=== PATIENT | female | born 1945 | race Two or more races ===

== ENCOUNTER 2019-05-30 13:05 | Inpatient (IN) | payer OTHER ==
[~2019-05-30] VITALS: Ht 160 cm; Wt 79.6 kg
[~2019-05-30 13:05] MED LIST: BENA20 PO; PRAV20 PO; RANI150 PO
[2019-05-30 13:35] LABS: Calcium, Ionized (POC) 1.25 mmol/L (1.10-1.46); Chloride (POC) 99 mmol/L (98-108); Creatinine (POC) 0.9 mg/dL (0.6-1.0); Glucose (ISTAT POC) 295 mg/dL (70-99); Hemoglobin (POC) 12.6 g/dL (12.0-16.0); Potassium (POC) 4.3 mmol/L (3.5-5.5); Sodium (POC) 135 mmol/L (135-148); Total CO2 (POC) 27 mmol/L (21-32)
[2019-05-30 13:40] LABS: BASOPHILS ABSOLUTE AUTO 0.04 K/mm3 (0.00-0.23); BASOPHILS PERCENT AUTO 1 % (0-2); EOSINOPHILS ABSOLUTE AUTO 0.14 K/mm3 (0.00-0.68); EOSINOPHILS PERCENT AUTO 2 % (0-6); Hematocrit 38.6 % (33.0-51.0); Hemoglobin 12.4 g/dL (11.5-16.0); IMMATURE GRAN ABSOLUTE AUTO 0.02 K/mm3 (0.00-0.10); IMMATURE GRAN PERCENT AUTO 0 % (0-1); LYMPHOCYTES ABSOLUTE AUTO 1.02 K/mm3 (0.84-5.20); LYMPHOCYTES PERCENT AUTO 13 % (21-46); MONOCYTES ABSOLUTE AUTO 0.52 K/mm3 (0.16-1.47); MONOCYTES PERCENT AUTO 7 % (4-13); Mean Corpuscular HGB Conc 32.1 g/dL (31.5-36.5); Mean Corpuscular Volume 97 fL (80-100); Mean Platelet Volume 12.5 fL (9.1-12.4); NEUTROPHILS ABSOLUTE AUTO 6.12 K/mm3 (1.96-9.15); NEUTROPHILS PERCENT AUTO 78 % (41-73); Platelet Count 179 K/mm3 (150-400); RDW Coefficient Variation 13.2 % (11.7-14.2); White Blood Cell Count 7.86 K/mm3 (4.00-11.30)
[2019-05-30] MEDS ORDERED: METF500 PO (13:43)
[2019-05-30] MEDS ORDERED: B-121000 MC2 PO (14:11)
[2019-05-30 14:13] LABS: Alanine Aminotransfer (ALT/SGP 24 U/L (12-78); Albumin, Blood 3.4 g/dL (3.4-5.0); Albumin/Globulin Ratio 0.9 (0.8-1.8); Alk Phos 58 U/L (50-136); Anion Gap 8 mmol/L (6-16); Aspartate Aminotrans (AST/SGOT 20 U/L (12-37); Bilirubin, Total 0.3 mg/dL (0.1-1.0); Blood Urea Nitrogen 15 mg/dL (8-24); Bun/Creatinine Ratio 20.1 (12.0-20.0); CO2, Blood 26 mmol/L (21-32); Calcium, Blood 9.1 mg/dL (8.5-10.1); Chloride, Blood 103 mmol/L (98-108); Creatinine, Blood 0.75 mg/dL (0.40-1.00); Globulin, Blood 3.7 g/dL (2.2-4.0); Glomerular Filtration Rate >60 (60-); Glucose, Blood 285 mg/dL (70-99); Potassium, Blood 4.3 mmol/L (3.5-5.5); Sodium, Blood 137 mmol/L (136-145); Total Protein, Blood 7.1 g/dL (6.4-8.2); Troponin I 0.027 ng/mL (0.000-0.040)
[2019-05-30 14:49] LABS: International Normalized Ratio 1.03; Prothrombin Time Results 10.9 Sec (9.7-11.5)
[2019-05-31 03:48] LABS: BASOPHILS ABSOLUTE AUTO 0.04 K/mm3 (0.00-0.23); BASOPHILS PERCENT AUTO 1 % (0-2); EOSINOPHILS PERCENT AUTO 3 % (0-6); Hematocrit 36.9 % (33.0-51.0); Hemoglobin 11.8 g/dL (11.5-16.0); IMMATURE GRAN ABSOLUTE AUTO 0.02 K/mm3 (0.00-0.10); IMMATURE GRAN PERCENT AUTO 0 % (0-1); LYMPHOCYTES ABSOLUTE AUTO 1.19 K/mm3 (0.84-5.20); LYMPHOCYTES PERCENT AUTO 17 % (21-46); MONOCYTES ABSOLUTE AUTO 0.57 K/mm3 (0.16-1.47); MONOCYTES PERCENT AUTO 8 % (4-13); Mean Corpuscular Volume 97 fL (80-100); Mean Platelet Volume 12.7 fL (9.1-12.4); NEUTROPHILS ABSOLUTE AUTO 5.15 K/mm3 (1.96-9.15); NEUTROPHILS PERCENT AUTO 72 % (41-73); Platelet Count 162 K/mm3 (150-400); RDW Coefficient Variation 13.2 % (11.7-14.2); RDW Standard Deviation 47.1 fL (35.1-46.3); Red Blood Cell Count 3.81 M/mm3 (3.80-5.20); White Blood Cell Count 7.17 K/mm3 (4.00-11.30)
[2019-05-31 04:08] LABS: Anion Gap 6 mmol/L (6-16); Blood Urea Nitrogen 13 mg/dL (8-24); Bun/Creatinine Ratio 22.7 (12.0-20.0); CO2, Blood 23 mmol/L (21-32); Calcium, Blood 8.6 mg/dL (8.5-10.1); Chloride, Blood 110 mmol/L (98-108); Creatinine, Blood 0.57 mg/dL (0.40-1.00); Glomerular Filtration Rate >60 (60-); Glucose, Blood 125 mg/dL (70-99); Potassium, Blood 4.5 mmol/L (3.5-5.5); Sodium, Blood 139 mmol/L (136-145)
[2019-06-01] MEDS ORDERED: Amiodarone HCl200 MG PO (14:07)
== END 2019-06-01 16:45 | disposition home or self-care (01) | DRG 287 ==
LOC: ER 13:05 → PCU 16:32
PROVIDERS: Emergency Medicine; Hospitalist; Internal Medicine Cardiovascular Disease; ADMIT Internal Medicine
PROC: B2111ZZ Fluoroscopy of Multiple Coronary Arteries using Low Osmolar Contrast (ICD-10-PCS; principal; 2019-05-30)
PROC: 4A023N7 Measurement of Cardiac Sampling and Pressure, Left Heart, Percutaneous Approach (ICD-10-PCS; 2019-05-30)
DX: I47.2 Ventricular tachycardia (principal); Q21.1 Atrial septal defect; I28.0 Arteriovenous fistula of pulmonary vessels; E87.5 Hyperkalemia; E11.9 Type 2 diabetes mellitus without complications; I45.10 Unspecified right bundle-branch block; I10 Essential (primary) hypertension; R00.1 Bradycardia, unspecified
CPT/HCPCS: 36415; 71045; 80047; 80048; 80053; 82947; 83036; 83735; 84484; 85014; 85025; 85610; 86850; 86900; 86901; 93005; 93010; 93306; 93458; 96365; 96366; 96375; 99152; 99153; 99285-25; A9270; C1769; C1894; J0282; J0610; J0690; J1644; J2250; J3010; J3475; J7030; J7060; Q9967

== ENCOUNTER 2021-06-27 20:00 | Inpatient (IN) | payer SELFPAY ==
[~2021-06-27] VITALS: Ht 160 cm; Wt 76.1 kg
[~2021-06-27 20:00] MED LIST changes: +Amiodarone HCl200 MG PO; +B-121000 MC2 PO; +METF500 PO
[2021-06-27 20:22] LABS: BASOPHILS ABSOLUTE AUTO 0.03 K/mm3 (0.00-0.23); BASOPHILS PERCENT AUTO 0 % (0-2); EOSINOPHILS ABSOLUTE AUTO 0.02 K/mm3 (0.00-0.68); EOSINOPHILS PERCENT AUTO 0 % (0-6); Hematocrit 38.8 % (33.0-51.0); Hemoglobin 13.1 g/dL (11.5-16.0); IMMATURE GRAN ABSOLUTE AUTO 0.03 K/mm3 (0.00-0.10); IMMATURE GRAN PERCENT AUTO 0 % (0-1); LYMPHOCYTES ABSOLUTE AUTO 1.47 K/mm3 (0.84-5.20); LYMPHOCYTES PERCENT AUTO 15 % (21-46); MONOCYTES ABSOLUTE AUTO 0.55 K/mm3 (0.16-1.47); MONOCYTES PERCENT AUTO 6 % (4-13); Mean Corpuscular HGB Conc 33.8 g/dL (31.5-36.5); Mean Corpuscular Volume 92 fL (80-100); NEUTROPHILS ABSOLUTE AUTO 7.73 K/mm3 (1.96-9.15); NEUTROPHILS PERCENT AUTO 79 % (41-73); Platelet Count 183 K/mm3 (150-400); RDW Coefficient Variation 13.1 % (11.7-14.2); RDW Standard Deviation 43.8 fL (35.1-46.3); Red Blood Cell Count 4.23 M/mm3 (3.80-5.20); White Blood Cell Count 9.83 K/mm3 (4.00-11.30)
[2021-06-27 20:25] LABS: Calcium, Ionized (POC) 1.16 mmol/L (1.10-1.46); Chloride (POC) 99 mmol/L (98-108); Creatinine (POC) 1.5 mg/dL (0.6-1.0); Glucose (ISTAT POC) 175 mg/dL (70-99); Hemoglobin (POC) 14.6 g/dL (12.0-16.0); Potassium (POC) 4.5 mmol/L (3.5-5.5); Sodium (POC) 134 mmol/L (135-148); Total CO2 (POC) 24 mmol/L (21-32)
[2021-06-27 21:14] LABS: Albumin, Blood 3.6 g/dL (3.4-5.0); Bilirubin, Total 0.4 mg/dL (0.1-1.0); Bun/Creatinine Ratio 13.9 (12.0-20.0); Calcium, Blood 9.1 mg/dL (8.5-10.1); Creatinine, Blood 1.44 mg/dL (0.40-1.00); Globulin, Blood 3.7 g/dL (2.2-4.0); Magnesium, Blood 2.2 mg/dL (1.6-2.4); Potassium, Blood 4.1 mmol/L (3.5-5.5); Thyroid Stimulating Hormone 2.9 uIU/mL (0.360-4.800); Total Protein, Blood 7.3 g/dL (6.4-8.2)
[2021-06-27 21:18] LABS: Troponin I 0.577 ng/mL (0.000-0.040)
[2021-06-27 22:01] LABS: International Normalized Ratio 1.05
[2021-06-27] MEDS ORDERED: HYDCHL25 PO (22:05)
[2021-06-27] MEDS ORDERED: DILT60 PO (22:06)
[2021-06-27 23:16] LABS: Influenza A, PCR NEGATIVE (NEGATIVE); Influenza B, PCR NEGATIVE (NEGATIVE); Resp Syncytial Virus, PCR NEGATIVE (NEGATIVE); SARS-Cov-2 (COVID-19) PCR, MMC NEGATIVE (NEGATIVE)
[2021-06-28 05:50] LABS: BASOPHILS ABSOLUTE AUTO 0.04 K/mm3 (0.00-0.23); BASOPHILS PERCENT AUTO 1 % (0-2); EOSINOPHILS ABSOLUTE AUTO 0.02 K/mm3 (0.00-0.68); EOSINOPHILS PERCENT AUTO 0 % (0-6); Hematocrit 37.9 % (33.0-51.0); Hemoglobin 12.6 g/dL (11.5-16.0); IMMATURE GRAN ABSOLUTE AUTO 0.02 K/mm3 (0.00-0.10); IMMATURE GRAN PERCENT AUTO 0 % (0-1); LYMPHOCYTES ABSOLUTE AUTO 1.81 K/mm3 (0.84-5.20); LYMPHOCYTES PERCENT AUTO 21 % (21-46); MONOCYTES ABSOLUTE AUTO 0.76 K/mm3 (0.16-1.47); MONOCYTES PERCENT AUTO 9 % (4-13); Mean Corpuscular HGB 30.6 pg (26.0-34.0); Mean Corpuscular HGB Conc 33.2 g/dL (31.5-36.5); Mean Corpuscular Volume 92 fL (80-100); Mean Platelet Volume 13.6 fL (9.1-12.4); NEUTROPHILS PERCENT AUTO 69 % (41-73); Platelet Count 154 K/mm3 (150-400); RDW Standard Deviation 43.9 fL (35.1-46.3); Red Blood Cell Count 4.12 M/mm3 (3.80-5.20); White Blood Cell Count 8.65 K/mm3 (4.00-11.30)
[2021-06-28 06:21] LABS: Anion Gap 10 mmol/L (6-16); Blood Urea Nitrogen 24 mg/dL (8-24); Bun/Creatinine Ratio 18.5 (12.0-20.0); CHOL/HDL RATIO 2.6; CO2, Blood 27 mmol/L (21-32); Calcium, Blood 8.8 mg/dL (8.5-10.1); Chloride, Blood 100 mmol/L (98-108); Cholesterol 169 mg/dL (50-200); Glomerular Filtration Rate 40 (60-); Glucose, Blood 142 mg/dL (70-99); HDL Cholesterol 65 mg/dL (>39); LDL/HDL RATIO 1.3; Low Density Lipoprotein Chol 85 mg/dL (0-110); Magnesium, Blood 2.5 mg/dL (1.6-2.4); Potassium, Blood 4.3 mmol/L (3.5-5.5); Sodium, Blood 137 mmol/L (136-145); Triglycerides 95 mg/dL (30-160); Very Low Density Lipoprot Chol 19 mg/dL (6-32)
--- NOTE | 2021-06-28 12:02 | NUR ---
Echocardiogram completed.
--- NOTE | 2021-06-28 18:11 | NUR ---
SHIFT SUMMARY; ASSUMED CARE AT 0700. A/A/OX3. LIMITED KINYARWANDA, INTERPERATURE PHONE OFFERED, DECLINED. REPOSITIONS SELF IN BED, ASSISTED TO BEDSIDE COMMODE. CARDIO CONSULT CALLED. SINUS BRADY50'S WITH POSSIBLE HEART BLOCK, DENIES CP OR SOB. HEPARIN INFUSING AT 15UNITS/KG. DAUGHTER AT BEDSIDE IN AFTERNOON. POSSIBLE VTACH OBSERVED ON MONITOR IN AFTERNOON. CALLED. DR. VIRK AT BEDSIDE. STATES IS AFIB WITH VARIANCE HR 120'S-150'S. DENIES CHEST PAIN OR SOB. BP STABLE. VERBAL ORDER GIVEN FOR AMNIO GTT PER PROTOCOL. 150MG BOLUS GIVEN. AMNIO DRIP STARTED AT 33.3ML/HR PER ORDERS. STATUS CHANGED TO PCU BY DR. LAI. WILL CONTINUE TO MONITOR AND TREAT UNTIL CHANGE OF SHIFT.
--- NOTE | 2021-06-28 22:52 | NUR ---
ATTEMPTED TO CALL DR. HUGHES REGARDING HEART RATE OF 140S AFLUTTER.
--- NOTE | 2021-06-28 23:08 | NUR ---
ASSUMED CARE OF PATIENT AT APPROXIMATLEY 2200 FROM NYLON OPERATOR SANDEEP. PATIENT ARRIVED TO UNIT VIA STRETCHER; TRANSFER BY SLIDING FROM ED TO PCU STRETCHER WITH VERBAL CUES. PATIENT WOLOF SPEAKING ONLY; SON CAN BE CALLED ON SPEAKER PHONE PER ED; STALLION MANAGER PHONE SET UP IN ROOM AND USED TO COMMUNICATE WITH PATIENT. PATIENT DENIES PAIN, NASUEA, OR DIZZINESS. ZOLL BEDSIDE; HEART RATE 144-146 AFLUTTER/AFIB ON TELE; CALL PLACED TO MD; ASYPMTOMATIC; OXYGEN SATURATION ABOVE 90% ON ROOM AIR. HEPARIN GTT AND AMIODARONE GTT PER ORDER. BEDPAN USED; ATTENDS PLACED DUE TO HIGH HEART RATE; PATIENT ABLE TO LIFT HIPS AND ASSIST.
--- NOTE | 2021-06-28 23:12 | NUR ---
DR. MERRILL STATES 10MG IV CARDIZEM NOW AND CARDIZEM GTT IF HEART RATE DOESNT IMPROVE AFTER IV PUSH CARDIZEM.
--- NOTE | 2021-06-28 23:42 | NUR ---
UPDATED DR. MERRILL ABOUT PATIENTS DROP IN BP AND WHEN RYTHYM SLOWS DOWN IT IS SR W/BBB; ORDERS TO GIVE CARDIZEM.
--- NOTE | 2021-06-28 23:56 | NUR ---
SB/SR W/ PVC'S ON TELEMETRY NOW AFTER IV CARDIZEM 10MG PUSH; BP 98/65
--- NOTE | 2021-06-29 06:33 | NUR ---
PATIENT SLEPT ABOUT FIVE HOURS LAST NIGHT; UP TO BEDSIDE COMMODE W/ ONE ASSIST. HEART RATE 40-80'S; SB/SR PVCS. NO OTHER ACUTE CHANGES TO REPORT.
[2021-06-29 07:32] LABS: BASOPHILS ABSOLUTE AUTO 0.05 K/mm3 (0.00-0.23); BASOPHILS PERCENT AUTO 0 % (0-2); EOSINOPHILS ABSOLUTE AUTO 0.03 K/mm3 (0.00-0.68); EOSINOPHILS PERCENT AUTO 0 % (0-6); Hematocrit 39.8 % (33.0-51.0); Hemoglobin 13.4 g/dL (11.5-16.0); IMMATURE GRAN ABSOLUTE AUTO 0.04 K/mm3 (0.00-0.10); IMMATURE GRAN PERCENT AUTO 0 % (0-1); LYMPHOCYTES ABSOLUTE AUTO 1.72 K/mm3 (0.84-5.20); LYMPHOCYTES PERCENT AUTO 15 % (21-46); MONOCYTES ABSOLUTE AUTO 0.82 K/mm3 (0.16-1.47); MONOCYTES PERCENT AUTO 7 % (4-13); Mean Corpuscular HGB 30.9 pg (26.0-34.0); Mean Corpuscular HGB Conc 33.7 g/dL (31.5-36.5); Mean Corpuscular Volume 92 fL (80-100); NEUTROPHILS ABSOLUTE AUTO 9.01 K/mm3 (1.96-9.15); NEUTROPHILS PERCENT AUTO 77 % (41-73); Platelet Count 159 K/mm3 (150-400); RDW Coefficient Variation 13.1 % (11.7-14.2); RDW Standard Deviation 44.1 fL (35.1-46.3); Red Blood Cell Count 4.33 M/mm3 (3.80-5.20); White Blood Cell Count 11.67 K/mm3 (4.00-11.30)
[2021-06-29 07:44] LABS: Anion Gap 9 mmol/L (6-16); Blood Urea Nitrogen 20 mg/dL (8-24); Bun/Creatinine Ratio 26.7 (12.0-20.0); CO2, Blood 28 mmol/L (21-32); Calcium, Blood 8.9 mg/dL (8.5-10.1); Chloride, Blood 101 mmol/L (98-108); Creatinine, Blood 0.75 mg/dL (0.40-1.00); Glomerular Filtration Rate >60 (60-); Glucose, Blood 139 mg/dL (70-99); Potassium, Blood 3.5 mmol/L (3.5-5.5); Sodium, Blood 138 mmol/L (136-145)
[2021-06-29 07:58] LABS: Mean Platelet Volume 13.1 fL (9.1-12.4)
--- NOTE | 2021-06-29 19:34 | NUR ---
SHIFT SUMMARY PT A/O x4 AND COOPERATIVE OF CARE. PT WAS OFFERED TO USE THE TRUCK SERVICE TECHNICIAN PHONE THROUGHOUT SHIFT, PT REFUSED AND WOULD RATHER CALL FAMILY FOR INTERPRITATION. PT HAD AMIODARONE RUNNING UNTIL 1800, HR AVERAGED IN THE HIGH 50'S. AFTER AMIO GTT WAS STOPPED, PT HR FLUCTUATED BETWEEN 90-130'S. DR Sanchez NOTIFIED AND NEW MEDS ORDERED, SEE EMAR. DURING THIS CARDIAC EVENT, PT ASYMPTOMATIC. OTHER VSS T/O SHIFT WITH O2 SATS > 96% ON RA. NO REPORT OF CHEST PAIN/PRESSURE T/O SHIFT. NO REPORT OF SOB/DYSPNEA T/O SHIFT. PT DID REPORT MILD HEADACHES T/O SHIFT THAT "WENT AWAY AFTER EATING", PER FAMILY MEMBER ON PHONE. PT RECIEVED CARIZEM PUSH TOWARD END OF SHIFT, PT HP SLOWED FROM 130'S TO HIGH 50'S. NOC NURSE NOTIFIED.
--- NOTE | 2021-06-29 21:29 | NUR ---
ASSUMED CARE. AOX3, TAIWANESE SPEAKING, RUBBER TUBING BACKER PHONE IN ROOM. PERFERS TO USE FAMILY. DENIES ANY PAIN OR DISCOMFORT. DOES SAY OCCATIONALLY SHE DOES GET LIGHTHEADED WHEN HER HR GETS UP HIGH. NO SOB, HEADACHES, EDEMA. LUNG SOUNDS ARE CLEAR. WAS UP TO THE BATHROOM WITH MASTER PLUMBER HR SHOT UP TO 134, ONCE RESTING IN BED HR IN THE 60'S. SHE HAS DROPPED LOW 50 SO FAR TONIGHT. TELE IS MONITORING FOR CHANGES. SHE IS AWARE TO CALL IF SHE HAS ANY CHEST PAIN OR SYMPTOMS. CALL LIGHT IN REACH.
[2021-06-30 03:40] LABS: BASOPHILS ABSOLUTE AUTO 0.04 K/mm3 (0.00-0.23); BASOPHILS PERCENT AUTO 0 % (0-2); EOSINOPHILS ABSOLUTE AUTO 0.12 K/mm3 (0.00-0.68); EOSINOPHILS PERCENT AUTO 1 % (0-6); Hematocrit 39.9 % (33.0-51.0); Hemoglobin 13.6 g/dL (11.5-16.0); IMMATURE GRAN ABSOLUTE AUTO 0.05 K/mm3 (0.00-0.10); IMMATURE GRAN PERCENT AUTO 1 % (0-1); LYMPHOCYTES ABSOLUTE AUTO 1.45 K/mm3 (0.84-5.20); LYMPHOCYTES PERCENT AUTO 15 % (21-46); MONOCYTES ABSOLUTE AUTO 0.69 K/mm3 (0.16-1.47); MONOCYTES PERCENT AUTO 7 % (4-13); Mean Corpuscular HGB 31.3 pg (26.0-34.0); Mean Corpuscular HGB Conc 34.1 g/dL (31.5-36.5); Mean Corpuscular Volume 92 fL (80-100); Mean Platelet Volume 13.3 fL (9.1-12.4); NEUTROPHILS ABSOLUTE AUTO 7.16 K/mm3 (1.96-9.15); NEUTROPHILS PERCENT AUTO 75 % (41-73); Platelet Count 150 K/mm3 (150-400); RDW Coefficient Variation 12.8 % (11.7-14.2); RDW Standard Deviation 43.1 fL (35.1-46.3); Red Blood Cell Count 4.35 M/mm3 (3.80-5.20); White Blood Cell Count 9.51 K/mm3 (4.00-11.30)
[2021-06-30 03:58] LABS: Anion Gap 7 mmol/L (6-16); Blood Urea Nitrogen 19 mg/dL (8-24); Bun/Creatinine Ratio 23.9 (12.0-20.0); CO2, Blood 29 mmol/L (21-32); Calcium, Blood 8.8 mg/dL (8.5-10.1); Chloride, Blood 101 mmol/L (98-108); Glomerular Filtration Rate >60 (60-); Glucose, Blood 141 mg/dL (70-99); Potassium, Blood 3.6 mmol/L (3.5-5.5); Sodium, Blood 137 mmol/L (136-145)
[2021-06-30 05:19] LABS: BASOPHILS PERCENT MAN 0 % (0-2); EOSINOPHILS ABSOLUTE MAN 0.09 K/mm3 (0.00-0.68); EOSINOPHILS PERCENT MAN 1 % (0-6); LYMPHOCYTES ABSOLUTE MAN 1.04 K/mm3 (0.84-5.20); LYMPHOCYTES PERCENT MAN 11 % (21-46); MONOCYTES ABSOLUTE MAN 0.38 K/mm3 (0.16-1.47); MONOCYTES PERCENT MAN 4 % (4-13); NEUTROPHILS ABSOLUTE MAN 7.98 K/mm3 (1.96-9.15); SEG NEUTROPHILS PERCENT MAN 84 % (41-73); TOTAL CELLS COUNTED 100
--- NOTE | 2021-06-30 06:01 | NUR ---
SHIFT SUMMARY: AOX3, 1 ASSIST TO BSC. SWISS SPEAKING, DIRECTOR OF INTEGRATED MARKETING PHONE IN ROOM BUT PATIENT PERFERS TO CALL HER FAMILY FOR TRANSLATIONS. ASYMPTOMATIC THIS SHIFT DISPITE PROFOUND SINUS BRADYCARDIA LOW 46. NO CARDIZEM PILLS WERE ADMINISTERED DUE TO THIS. TELE SHOWS WIDE COMPLET QRS AT WHICH THE MEASUREMENTS CHANGED FREQUENTLY. NO TACHYCARDIA, HIGHEST SHE GOT WAS IN THE 80'S. REST OF VITALS WNL. ZOLL AND PATCHES ARE STILL IN PLACE. SHE IS ABLE TO MAKE HER NEEDS KNOWN. BS 150, NO COVERAGE INDICATED. USES CALL LIGHT APPROPRIATLY.
[2021-06-30] MEDS ORDERED: Acetaminophen325 M1 PO (17:45)
[2021-06-30] MEDS ORDERED: ASPI81CH PO (17:49)
[2021-06-30] MEDS ORDERED: AMIODARONE HCL400 M2 PO (17:49)
[2021-06-30] MEDS ORDERED: ATOR80 PO (17:50)
[2021-06-30] MEDS ORDERED: ONDA4ODT MM (17:51)
[2021-06-30] MEDS ORDERED: XARELTO20 MG PO (17:52)
--- NOTE | 2021-06-30 18:54 | NUR ---
Discharge Summary: Pt discharged home. Discharge instructions provided to pt utilizing [facility] at bedside for translation, pt verbalized understanding. All belongings sent with pt. Pt in no apparent distress at this time.
== END 2021-06-30 19:00 | disposition home or self-care (01) | DRG 309 ==
LOC: ER 20:00 → ERHOLD 23:20 → PCU 23:20
PROVIDERS: Emergency Medicine; Family Medicine; ADMIT Internal Medicine
PROC: 5A2204Z Restoration of Cardiac Rhythm, Single (ICD-10-PCS; principal; 2021-06-27)
DX: I44.2 Atrioventricular block, complete (principal); N17.9 Acute kidney failure, unspecified; Z20.822 Contact with and (suspected) exposure to COVID-19; I48.91 Unspecified atrial fibrillation; Z66 Do not resuscitate; R77.8 Other specified abnormalities of plasma proteins; E78.5 Hyperlipidemia, unspecified; I07.1 Rheumatic tricuspid insufficiency; E11.9 Type 2 diabetes mellitus without complications; I10 Essential (primary) hypertension; D64.9 Anemia, unspecified; F41.1 Generalized anxiety disorder; Z79.84 Long term (current) use of oral hypoglycemic drugs; Z79.899 Other long term (current) drug therapy; Z90.49 Acquired absence of other specified parts of digestive tract; Z28.21 Immunization not carried out because of patient refusal
CPT/HCPCS: 0241U; 36415; 71045; 80047; 80048; 80053; 80061; 82947; 83735; 83880; 84443; 84484; 85014; 85025; 85520; 85610; 92960; 93005; 93010; 93306; 94762; 96365; 96366; 96368; 96375; 96376; 99152; 99153; 99291-25; 99292; A9270; J0282; J1644; J1650; J2405; J2704; J2765; J3475; J7030; J7060

== ENCOUNTER 2023-02-15 17:46 | Inpatient (IN) | payer MEDICAID ==
[~2023-02-15] VITALS: Ht 157.5 cm; Wt 62.3 kg
[~2023-02-15 17:46] MED LIST changes: +AMIODARONE HCL400 M2 PO; +ASPI81CH PO; +ATOR80 PO; +Acetaminophen325 M1 PO; +DILT60 PO; +HYDCHL25 PO; +ONDA4ODT MM; +XARELTO20 MG PO
[2023-02-15 18:56] LABS: BASOPHILS ABSOLUTE AUTO 0.04 K/mm3 (0.00-0.23); BASOPHILS PERCENT AUTO 1 % (0-2); EOSINOPHILS ABSOLUTE AUTO 0.09 K/mm3 (0.00-0.68); EOSINOPHILS PERCENT AUTO 1 % (0-6); Hematocrit 44.7 % (33.0-51.0); Hemoglobin 15.1 g/dL (11.5-16.0); IMMATURE GRAN ABSOLUTE AUTO 0.06 K/mm3 (0.00-0.10); IMMATURE GRAN PERCENT AUTO 1 % (0-1); LYMPHOCYTES ABSOLUTE AUTO 1.01 K/mm3 (0.84-5.20); LYMPHOCYTES PERCENT AUTO 12 % (21-46); MONOCYTES PERCENT AUTO 7 % (4-13); Mean Corpuscular HGB 31.3 pg (26.0-34.0); Mean Corpuscular HGB Conc 33.8 g/dL (31.5-36.5); Mean Corpuscular Volume 93 fL (80-100); Mean Platelet Volume 12.3 fL (9.1-12.4); NEUTROPHILS ABSOLUTE AUTO 6.71 K/mm3 (1.96-9.15); NEUTROPHILS PERCENT AUTO 79 % (41-73); Platelet Count 173 K/mm3 (150-400); RDW Coefficient Variation 14.7 % (11.7-14.2); RDW Standard Deviation 50.4 fL (35.1-46.3); Red Blood Cell Count 4.82 M/mm3 (3.80-5.20); White Blood Cell Count 8.51 K/mm3 (4.00-11.30)
[2023-02-15 19:20] LABS: Albumin, Blood 3.7 g/dL (3.4-5.0); Bilirubin, Total 0.5 mg/dL (0.1-1.0); Bun/Creatinine Ratio 13.8 (12.0-20.0); Calcium, Blood 9.5 mg/dL (8.5-10.1); Creatinine, Blood 2.18 mg/dL (0.40-1.00); Globulin, Blood 3.7 g/dL (2.2-4.0); Magnesium, Blood 1.9 mg/dL (1.6-2.4); Potassium, Blood 4.6 mmol/L (3.5-5.5); Total Protein, Blood 7.4 g/dL (6.4-8.2)
[2023-02-15 21:22] LABS: Prolactin 39.8 ng/mL (2.74-19.64)
[2023-02-15 23:12] VITALS: BP 125/65
[2023-02-15] MEDS ORDERED: SPIR25 PO (23:36)
[2023-02-15] MEDS ORDERED: FURO20 PO (23:36)
[2023-02-15] MEDS ORDERED: METO25ER PO (23:37)
[2023-02-15] MEDS ORDERED: METF500 PO (23:39)
[2023-02-15] MEDS ORDERED: Prinivil10 MG PO (23:40)
[2023-02-15] MEDS ORDERED: AMIODARONE HCL400 M1 PO (23:42)
[2023-02-16 03:04] LABS: BASOPHILS ABSOLUTE AUTO 0.02 K/mm3 (0.00-0.23); BASOPHILS PERCENT AUTO 0 % (0-2); EOSINOPHILS ABSOLUTE AUTO 0.09 K/mm3 (0.00-0.68); EOSINOPHILS PERCENT AUTO 1 % (0-6); Hematocrit 38.9 % (33.0-51.0); IMMATURE GRAN ABSOLUTE AUTO 0.05 K/mm3 (0.00-0.10); IMMATURE GRAN PERCENT AUTO 1 % (0-1); LYMPHOCYTES ABSOLUTE AUTO 1.08 K/mm3 (0.84-5.20); LYMPHOCYTES PERCENT AUTO 15 % (21-46); MONOCYTES ABSOLUTE AUTO 0.57 K/mm3 (0.16-1.47); MONOCYTES PERCENT AUTO 8 % (4-13); Mean Corpuscular HGB Conc 33.4 g/dL (31.5-36.5); Mean Corpuscular Volume 93 fL (80-100); Mean Platelet Volume 12.3 fL (9.1-12.4); NEUTROPHILS ABSOLUTE AUTO 5.29 K/mm3 (1.96-9.15); NEUTROPHILS PERCENT AUTO 75 % (41-73); Platelet Count 152 K/mm3 (150-400); RDW Coefficient Variation 14.9 % (11.7-14.2); RDW Standard Deviation 50.6 fL (35.1-46.3); Red Blood Cell Count 4.19 M/mm3 (3.80-5.20)
[2023-02-16 03:27] LABS: Albumin, Blood 2.9 g/dL (3.4-5.0); Bilirubin, Total 0.4 mg/dL (0.1-1.0); Bun/Creatinine Ratio 14.3 (12.0-20.0); Calcium, Blood 8.6 mg/dL (8.5-10.1); Creatinine, Blood 2.03 mg/dL (0.40-1.00); Globulin, Blood 2.9 g/dL (2.2-4.0); Potassium, Blood 4.2 mmol/L (3.5-5.5); Total Protein, Blood 5.8 g/dL (6.4-8.2)
--- NOTE | 2023-02-16 04:09 | NUR ---
SHIFT SUMMARY ER ADMIT. PATIENT SETTLED INTO ROOM, PATIENT PRIMARILY HEBREW SPEAKING. FAMILY AT BEDSIDE TO TRANSLATE DURING ADMISSION. TRANSLATION PHONE AT BEDSIDE. PATIETN DENIES PAIN, NAUSEA, AND SHORTNESS OF BREATH. NO SEIZURE ACTIVITY NOTED THIS SHIFT. PATIENT UP SBA TO BR. EEG AND RENAL ULTRASOUND PENDING. PLEASANT AND COOPERATIVE WITH CARE.
[2023-02-16 04:20] VITALS: BP 118/61
[2023-02-16 07:43] VITALS: BP 116/60
[2023-02-16 10:54] LABS: Source, Urine Clean Catch
[2023-02-16 11:00] LABS: Appearance, Urine Clear (Clear); Bilirubin, Urine Neg (Neg); Blood, Urine Neg (Neg); Color, Urine Yellow (P-Yellow); Glucose Qualitative, Urine Neg (Neg); Ketones, Urine Neg (Neg); Leukocyte Esterase, Urine Neg (Neg); Nitrite, Urine Neg (Neg); Protein, Urine Neg (Neg); Specific Gravity, Urine 1.015 (1.003-1.022); Urobilinogen, Urine NORM (Normal)
[2023-02-16 15:32] VITALS: BP 97/48
--- NOTE | 2023-02-16 18:47 | NUR ---
SHIFT SUMMARY: NO ACUTE EVENTS. DENIED PAIN. APPETITE OK, FAMILY BROUGHT OUTSIDE FOOD TO GET HER TO EAT. NO EVENTS ON TELEMETRY, AV PACED AT 60. RENAL U/S COMPLETED. GETTING UP TO BR WITH 1 PERSON AND FWW, GAIT IS UNSTEADY, BED ALARM ON. EEG STILL PENDING.
[2023-02-16 19:58] VITALS: BP 99/51
--- NOTE | 2023-02-17 04:58 | NUR ---
SHIFT SUMMARY 77 YR F ADMITTED ON 09/15/22 FOR ARF AND SEIZURES OF UNKNOWN EDIOLOGY. FULL CODE. RECEIVED A CALL FROM SMT OPERATOR CONCERNING CHANGES IN PT HEART RYTHMS. PER SMT OPERATOR PT HAD VERY INCREASED ST ELEVATION AND THAT THE PRIOR DAY SHE HAD PAC'S AND THIS SHIFT IT WAS BBB. EKG WAS DONE AND HOSPITALIST WAS NOTIFIED. PT HAS A PACEMAKER AND M.D. STATED THAT THE EKG WAS NOT ABNORMAL. PT WAS ASYMPTOMATIC AND THERE WERE NO OTHER TELE EVENTS THROUGHOUT THE SHIFT. SHE IS [place] CITIZEN SPEAKING ONLY AND HAD FAMILY IN THE ROOM THAT COULD INTERPRET FOR THE FIRST PART OF THE SHIFT. PT SLEPT FOR THE REST OF THE SHIFT. NO C/O PAIN OR DISCOMFORT AND SHE CALLS APPROPRIATELY FOR ASSISTANCE TO THE BATHROOM.
[2023-02-17 05:24] VITALS: BP 112/63
[2023-02-17 06:31] LABS: Albumin, Blood 2.8 g/dL (3.4-5.0); Bilirubin, Total 0.4 mg/dL (0.1-1.0); Calcium, Blood 8.6 mg/dL (8.5-10.1); Creatinine, Blood 1.25 mg/dL (0.40-1.00); Globulin, Blood 2.7 g/dL (2.2-4.0); Potassium, Blood 4.3 mmol/L (3.5-5.5); Total Protein, Blood 5.5 g/dL (6.4-8.2)
[2023-02-17 07:58] VITALS: BP 116/66
[2023-02-17 15:48] VITALS: BP 109/67
--- NOTE | 2023-02-17 18:26 | NUR ---
SHIFT SUMMARY: NO ACUTE EVENTS. NO EVENTS ON TELEMETRY, AV PACED AT 60. HAD BM X 2 TODAY, VERY LOOSE. AMBULATING TO BR WITH 1 PERSON, FWW; GAIT IS A BIT UNSTEADY. NO SEIZURE ACTIVITY NOTED. DENIED PAIN. EEG COMPLETED. HAD FAMILY AT BEDSIDE FOR PART OF THE DAY.
[2023-02-17 19:32] VITALS: BP 127/72
[2023-02-18 02:06] VITALS: BP 100/54
--- NOTE | 2023-02-18 05:07 | NUR ---
SHIFT SUMMARY 77 YR F ADMITTED ON 02/15/23 FOR ARF. FULL CODE. NO ACUTE CHANGES THIS SHIFT. PT STATES THAT SHE IS FEELING MUCH BETTER. SHE HAD FAMILY PRESENT FOR THE FIRST PART OF THE EVENING AND SHE SLEPT FOR THE REST OF THE NIGHT. NO C/O PAIN OR DISCOMFORT THIS SHIFT. NE TELE EVENTS.
[2023-02-18 05:28] LABS: BASOPHILS ABSOLUTE AUTO 0.05 K/mm3 (0.00-0.23); BASOPHILS PERCENT AUTO 1 % (0-2); EOSINOPHILS PERCENT AUTO 1 % (0-6); Hematocrit 41.4 % (33.0-51.0); Hemoglobin 13.9 g/dL (11.5-16.0); IMMATURE GRAN ABSOLUTE AUTO 0.06 K/mm3 (0.00-0.10); IMMATURE GRAN PERCENT AUTO 1 % (0-1); LYMPHOCYTES ABSOLUTE AUTO 1.01 K/mm3 (0.84-5.20); LYMPHOCYTES PERCENT AUTO 13 % (21-46); MONOCYTES ABSOLUTE AUTO 0.61 K/mm3 (0.16-1.47); MONOCYTES PERCENT AUTO 8 % (4-13); Mean Corpuscular HGB 31.4 pg (26.0-34.0); Mean Corpuscular HGB Conc 33.6 g/dL (31.5-36.5); Mean Corpuscular Volume 94 fL (80-100); NEUTROPHILS ABSOLUTE AUTO 5.85 K/mm3 (1.96-9.15); NEUTROPHILS PERCENT AUTO 76 % (41-73); Platelet Count 155 K/mm3 (150-400); RDW Coefficient Variation 14.8 % (11.7-14.2); RDW Standard Deviation 51.5 fL (35.1-46.3); Red Blood Cell Count 4.42 M/mm3 (3.80-5.20); White Blood Cell Count 7.68 K/mm3 (4.00-11.30)
[2023-02-18 05:38] LABS: Bun/Creatinine Ratio 12.1 (12.0-20.0); Creatinine, Blood 1.07 mg/dL (0.40-1.00); Magnesium, Blood 1.7 mg/dL (1.6-2.4); Phosphorus, Blood 2.7 mg/dL (2.5-4.9); Potassium, Blood 4.7 mmol/L (3.5-5.5)
[2023-02-18 07:17] VITALS: BP 105/63
[2023-02-18] MEDS ORDERED: LEVE500 PO (11:28)
--- NOTE | 2023-02-18 17:12 | NUR ---
PT DISCHARGED THE PT AND HER FAMILY VERBALIZED UNDERSTANDING OF THE DC INSTRUCTIONS. THE PTS PRESCIPTIONS WERE FAXED TO ANUEL INSTRUCTED. THE PT WAS ENCOURAGED TO ESTABLISH AND FOLLOW UP WITH A PCP SOON POSSIBLE. THE PT WAS TRANSFERED VIA WHEELCHAIR TO THE FRONT ACCOMPANIED BY HER FAMILY AND THE FULL STACK PHP DEVELOPER
== END 2023-02-18 16:40 | disposition home or self-care (01) | DRG 101 ==
LOC: ER 17:46 → MEDS 22:08 → SURS 22:08 → MEDS 23:10 → ENPENDDIS 02-18 11:12 → MEDS 02-18 16:40
PROVIDERS: Internal Medicine; Physician Assistant; ADMIT Internal Medicine
DX: R56.9 Unspecified convulsions (principal); N17.9 Acute kidney failure, unspecified; G93.40 Encephalopathy, unspecified; I47.20 Ventricular tachycardia, unspecified; I50.22 Chronic systolic (congestive) heart failure; I48.0 Paroxysmal atrial fibrillation; I11.0 Hypertensive heart disease with heart failure; E11.9 Type 2 diabetes mellitus without complications; E78.5 Hyperlipidemia, unspecified; I49.9 Cardiac arrhythmia, unspecified; F41.1 Generalized anxiety disorder; K64.9 Unspecified hemorrhoids; Z95.0 Presence of cardiac pacemaker; Z79.84 Long term (current) use of oral hypoglycemic drugs; Z79.82 Long term (current) use of aspirin; Z79.899 Other long term (current) drug therapy; Z87.442 Personal history of urinary calculi; Z90.49 Acquired absence of other specified parts of digestive tract
CPT/HCPCS: 36415; 70450; 71046; 76770; 80048; 80053; 81003; 82947; 83735; 83880; 84100; 84146; 84484; 85025; 93005; 93010; 95819; 96361; 96365; 96368; 97110; 97165; 99285-25; A9270; J1644; J1953; J3475; J7030; J7040

== ENCOUNTER 2023-03-29 09:02 | Emergency (ER) | payer OTHER ==
[~2023-03-29] VITALS: Ht 157.5 cm; Wt 52.2 kg
[~2023-03-29 09:02] MED LIST changes: +AMIODARONE HCL400 M1 PO; +FURO20 PO; +LEVE500 PO; +METO25ER PO; +Prinivil10 MG PO; +SPIR25 PO
[2023-03-29 10:02] LABS: BASOPHILS ABSOLUTE AUTO 0.05 K/mm3 (0.00-0.23); BASOPHILS PERCENT AUTO 1 % (0-2); EOSINOPHILS ABSOLUTE AUTO 0.05 K/mm3 (0.00-0.68); EOSINOPHILS PERCENT AUTO 1 % (0-6); Hematocrit 44.8 % (33.0-51.0); Hemoglobin 15.3 g/dL (11.5-16.0); IMMATURE GRAN ABSOLUTE AUTO 0.04 K/mm3 (0.00-0.10); IMMATURE GRAN PERCENT AUTO 1 % (0-1); LYMPHOCYTES ABSOLUTE AUTO 1.29 K/mm3 (0.84-5.20); LYMPHOCYTES PERCENT AUTO 19 % (21-46); MONOCYTES ABSOLUTE AUTO 0.48 K/mm3 (0.16-1.47); MONOCYTES PERCENT AUTO 7 % (4-13); Mean Corpuscular HGB Conc 34.2 g/dL (31.5-36.5); Mean Corpuscular Volume 94 fL (80-100); Mean Platelet Volume 12.5 fL (9.1-12.4); NEUTROPHILS PERCENT AUTO 72 % (41-73); Platelet Count 147 K/mm3 (150-400); RDW Coefficient Variation 14.9 % (11.7-14.2); RDW Standard Deviation 51.5 fL (35.1-46.3); Red Blood Cell Count 4.78 M/mm3 (3.80-5.20); White Blood Cell Count 6.81 K/mm3 (4.00-11.30)
[2023-03-29 10:17] LABS: Albumin, Blood 3.6 g/dL (3.4-5.0); Albumin/Globulin Ratio 1.1 (0.8-1.8); Bilirubin, Total 0.7 mg/dL (0.1-1.0); Bun/Creatinine Ratio 16.7 (12.0-20.0); Calcium, Blood 9.3 mg/dL (8.5-10.1); Creatinine, Blood 1.62 mg/dL (0.40-1.00); Globulin, Blood 3.2 g/dL (2.2-4.0); Magnesium, Blood 1.7 mg/dL (1.6-2.4); Prolactin 28.1 ng/mL (2.74-19.64); Total Protein, Blood 6.8 g/dL (6.4-8.2)
[2023-03-29 10:45] LABS: Influenza A, PCR NEGATIVE (NEGATIVE); Influenza B, PCR NEGATIVE (NEGATIVE); Resp Syncytial Virus, PCR NEGATIVE (NEGATIVE); SARS-Cov-2 (COVID-19) PCR, MMC NEGATIVE (NEGATIVE)
[2023-03-29 13:34] LABS: Source, Urine Clean Catch
[2023-03-29 13:46] LABS: Appearance, Urine Clear (Clear); Bilirubin, Urine Neg (Neg); Blood, Urine Neg (Neg); Color, Urine Yellow (P-Yellow); Glucose Qualitative, Urine Neg (Neg); Ketones, Urine 2+ (Neg); Leukocyte Esterase, Urine 2+ (Neg); Nitrite, Urine Neg (Neg); Protein, Urine Neg (Neg); Specific Gravity, Urine 1.015 (1.003-1.022); Urobilinogen, Urine NORM (Normal)
[2023-03-29 13:59] LABS: Bacteria Mod /hpf; Hyaline Casts 0-2 /lpf (0-2); Red Blood Cells, Urine 0-2 /hpf (0-2); Squamous Epithelial Cells Few /hpf (Few)
[2023-03-29 14:15] VITALS: BP 116/77
[2023-03-29] MEDS ORDERED: LEVE500 PO (14:23)
== END 2023-03-29 14:30 | disposition home or self-care (01) ==
LOC: ER 09:02
PROVIDERS: Student in an Organized Health Care Education/Training Program
DX: E86.0 Dehydration (principal); R55 Syncope and collapse; N17.9 Acute kidney failure, unspecified; Z79.899 Other long term (current) drug therapy; Z79.82 Long term (current) use of aspirin; Z79.84 Long term (current) use of oral hypoglycemic drugs; E78.5 Hyperlipidemia, unspecified; E11.9 Type 2 diabetes mellitus without complications; I10 Essential (primary) hypertension; D64.9 Anemia, unspecified
CPT/HCPCS: 0241U; 71046; 80053; 81001; 83735; 83880; 84145; 84146; 84484; 85025; 87077; 87086; 87186; 96360; 99284-25; J7030

== ENCOUNTER 2024-03-24 12:23 | Day surgery (SDC) | payer OTHER ==
[~2024-03-24] VITALS: Ht 160 cm; Wt 57.6 kg
[~2024-03-24 12:23] MED LIST changes: +Balanced Salt Epinephrine Irrigation Solution 500 mL IR SCH; +Lidocaine HCl/Pf 1% 5 ML VIAL ONE; +Lidocaine HCl/Pf 1% 5 ML VIAL XX SCH; +Moxifloxacin HCL 0.5 MG/0.1 ML 0.4MLSYR LEFTEYE SCH; +NS 0 ML IV ONE; +NS 500 ML IV ONE; +PHENYLEPHRINE\\TROPICAMIDE\\TETRACAINE OPHTHALMIC DILATING SOLN LEFTEYE PRN; +Povidone-Iodine 450 DROP/30 ML Solution LEFTEYE SCH; +Povidone-Iodine 450 DROP/30 ML Solution ONE; +Tetracaine HCl/Pf 0.5% Opth Soln 4 ml ONE; +Triamcinolone Inj Susp 40 MG / ML 1ML Vial INJ SCH; +Triamcinolone Inj Susp 40 MG / ML 1ML Vial ONE
[2024-03-24] MEDS ORDERED: Diazepam 5 MG Tab ONE (13:35)
[2024-03-24] MEDS ORDERED: NS 500 ML IV ONE (14:08)
--- NOTE | 2024-03-24 14:14 | NUR ---
[facility]/24 [facility]14 [facility] 5 MG PO VALIUM GIVEN BY SAGE AVALOS. PT PLACED ON PULSE OXIMETER.
[2024-03-24 14:43] VITALS: BP 119/63
--- NOTE | 2024-03-24 15:33 | NUR ---
03/24/24 0510 CARON LUNDY TENTERING MACHINE FEEDER BROUGHT IN TO HELP WITH DC INSTRUCTIONS. SON TOOK PT HOME. VERY SWEET LADY.
== END 2024-03-24 15:30 | disposition home or self-care (01) ==
LOC: ORSCSDS 12:23
PROVIDERS: Ophthalmology
PROC: 08RK3JZ Replacement of Left Lens with Synthetic Substitute, Percutaneous Approach (ICD-10-PCS; principal; 2024-03-24 14:00)
DX: E11.36 Type 2 diabetes mellitus with diabetic cataract (principal); H25.812 Combined forms of age-related cataract, left eye; I10 Essential (primary) hypertension; I48.91 Unspecified atrial fibrillation; Z86.718 Personal history of other venous thrombosis and embolism; E78.5 Hyperlipidemia, unspecified; Z79.84 Long term (current) use of oral hypoglycemic drugs; Z79.82 Long term (current) use of aspirin; Z79.899 Other long term (current) drug therapy
CPT/HCPCS: 82947; A9270; J2001; J3301; J7040; V2632

== ENCOUNTER 2024-04-16 12:16 | Inpatient (IN) | payer OTHER ==
[~2024-04-16] VITALS: Ht 162.6 cm; Wt 68.0 kg
[~2024-04-16 12:16] MED LIST changes: -Balanced Salt Epinephrine Irrigation Solution 500 mL IR SCH; -Lidocaine HCl/Pf 1% 5 ML VIAL ONE; -Lidocaine HCl/Pf 1% 5 ML VIAL XX SCH; -Moxifloxacin HCL 0.5 MG/0.1 ML 0.4MLSYR LEFTEYE SCH; -NS 0 ML IV ONE; -NS 500 ML IV ONE; -PHENYLEPHRINE\\TROPICAMIDE\\TETRACAINE OPHTHALMIC DILATING SOLN LEFTEYE PRN; -Povidone-Iodine 450 DROP/30 ML Solution LEFTEYE SCH; -Povidone-Iodine 450 DROP/30 ML Solution ONE; -Tetracaine HCl/Pf 0.5% Opth Soln 4 ml ONE; -Triamcinolone Inj Susp 40 MG / ML 1ML Vial INJ SCH; -Triamcinolone Inj Susp 40 MG / ML 1ML Vial ONE
[2024-04-16] MEDS ORDERED: Aspirin 325 MG Tab PO ONE (12:55)
[2024-04-16 13:00] LABS: BASOPHILS ABSOLUTE AUTO 0.07 K/mm3 (0.00-0.23); BASOPHILS PERCENT AUTO 1 % (0-2); EOSINOPHILS ABSOLUTE AUTO 0.24 K/mm3 (0.00-0.68); EOSINOPHILS PERCENT AUTO 3 % (0-6); Hematocrit 44.3 % (33.0-51.0); Hemoglobin 14.5 g/dL (11.5-16.0); IMMATURE GRAN ABSOLUTE AUTO 0.04 K/mm3 (0.00-0.10); IMMATURE GRAN PERCENT AUTO 1 % (0-1); LYMPHOCYTES ABSOLUTE AUTO 1.56 K/mm3 (0.84-5.20); LYMPHOCYTES PERCENT AUTO 20 % (21-46); MONOCYTES PERCENT AUTO 8 % (4-13); Mean Corpuscular HGB 32.7 pg (26.0-34.0); Mean Corpuscular HGB Conc 32.7 g/dL (31.5-36.5); Mean Corpuscular Volume 100 fL (80-100); Mean Platelet Volume 11.9 fL (9.1-12.4); NEUTROPHILS ABSOLUTE AUTO 5.25 K/mm3 (1.96-9.15); NEUTROPHILS PERCENT AUTO 68 % (41-73); Platelet Count 180 K/mm3 (150-400); RDW Coefficient Variation 14.2 % (11.7-14.2); RDW Standard Deviation 52.4 fL (35.1-46.3); Red Blood Cell Count 4.43 M/mm3 (3.80-5.20); White Blood Cell Count 7.76 K/mm3 (4.00-11.30)
[2024-04-16] MEDS ORDERED: NS 1,000 ML IV SCH ×2 (13:00)
[2024-04-16 13:17] LABS: Albumin, Blood 3.7 g/dL (3.4-5.0); Bilirubin, Total 0.6 mg/dL (0.1-1.0); Bun/Creatinine Ratio 18.5 (12.0-20.0); Calcium, Blood 9.2 mg/dL (8.5-10.1); Creatinine, Blood 1.46 mg/dL (0.40-1.00); Globulin, Blood 3.6 g/dL (2.2-4.0); Potassium, Blood 4.9 mmol/L (3.5-5.5); Total Protein, Blood 7.3 g/dL (6.4-8.2)
[2024-04-16] MEDS ORDERED: Aspirin 81 MG Chew ONE (13:20)
[2024-04-16] MEDS ORDERED: Clopidogrel Bisulfate 75 MG Tab PO ONE (13:25)
[2024-04-16 15:00] LABS: CHOL/HDL RATIO 2.1; Cholesterol 192 mg/dL (50-200); HDL Cholesterol 90 mg/dL (>39); LDL/HDL RATIO 0.9; Low Density Lipoprotein Chol 78 mg/dL (0-110); Triglycerides 121 mg/dL (30-160); Very Low Density Lipoprot Chol 24 mg/dL (6-32)
[2024-04-16] MEDS ORDERED: FLU VACC TS2024-25(6MOS UP)/PF 45 MCG/0.5 ML SYRINGE IM ONE (16:00)
[2024-04-16 16:58] VITALS: BP 151/80
[2024-04-16] MEDS ORDERED: Ondansetron HCl 2 MG / ML 2ML Vial IV PRN (17:00)
[2024-04-16] MEDS ORDERED: LEVOTHYROXINE50 MC9 PO (17:05)
[2024-04-16] MEDS ORDERED: ATOR20 (17:06)
[2024-04-16] MEDS ORDERED: Acetaminophen 325 MG TABLET PO PRN (17:30)
[2024-04-16] MEDS ORDERED: HydrALAZINE HCl 20 MG / ML 1ML Vial IV PRN (18:25)
--- NOTE | 2024-04-16 20:11 | NUR ---
END OF SHIFT/TRANSFER SUMMARY: A&Ox2-3. PLEASANT AND COOPERATIVE WITH CARE ABLE. UNABLE TO USE CALL LIGHT OR ADVOCATE NEEDS SECONDARY TO NEURO STATUS. ALSO BAHRAINI-SPEAKING, ONLY, WITH [facility]-PROVIDED CHAINSTITCH ZIPPER SETTER, LINDSAY CALDWELL. AMBULATES INDEPENDENTLY AT BASELINE, BUT HAS BEEN BEDBOUND SINCE ADMIT TO FLOOR SECONDARY TO RIGHT-SIDED HEMIPARALYSIS AND NEGLECT. INCONTINENT WITH PUREWICK USE. MEDICATED ONCE FOR NAUSEA. IN LIGHT OF CONTINUED RIGHT-SIDED HEMIPARESIS EPISODE, DR. IQBAL IS TRANSFERRING TO PCU AND PT TO HAVE STAT HEAD CT. PLANS FOR HEPARIN GTTs UPON ADMIT TO PCU. BED IN LOWEST POSITION. CALL LIGHT WITHIN REACH. ALL NEEDS MET. REPORT TO AUREA PEACOCK RN.
[2024-04-16 20:16] VITALS: BP 139/126
--- NOTE | 2024-04-16 20:41 | NUR ---
TRANSFER PATIENT TRANSFERRED TO PCU [address] SCAN. PATIENT ARRIVES TO ROOM WITH MULTIPLE FAMILY MEMBERS AT BEDSIDE. SLOVENIAN SPEAKING YARN WEIGHT AND STRENGTH TESTER ACCOMPANYING PATIENT WELL. PATIENT IS ALERT, UNABLE TO COMMUNICATE OR FOLLOW COMMANDS. LEFT SIDED CRIMINAL INVESTIGATOR PRESENT, RIGHT SIDE FLACCID AT THIS TIME. PUPILS EQUAL AND REACTIVE. PATIENT ABLE TO NOD YES AND NO TO COMMERCIAL LINES ACCOUNT EXECUTIVE BUT IS UNABLE TO VOICE WORDS OR ANSWERS. BP STABLE. PATIENT ON RA WITH SPO2 >90%. ON TELE, ATRIAL/BIVENTRICULAR PACED. KEEPING PATIENT NPO AT THIS TIME D/T ALTERED MENTAL STATUS. FAMILY AGREEABLE. FAMILY MEMBERS ASKING QUESTIONS ABOUT PLAN OF CARE. DR. OROZCO AT BEDSIDE TO ANSWER QUESTIONS WELL. SON TO STAY WITH PATIENT OVERNIGHT.
[2024-04-16] MEDS ORDERED: Metoprolol Succinate 25 MG TABCR PO SCH (21:00)
[2024-04-16 21:24] LABS: Anti-Xa UFH, PHA Monitoring <0.10 IU/mL; International Normalized Ratio 1.02; Prothrombin Time Results 10.9 Sec (9.7-11.5)
[2024-04-16] MEDS ORDERED: Heparin Sodium,Porcine/0.5 NS 500 ML IV SCH (21:30)
[2024-04-16 22:00] VITALS: BP 121/69
[2024-04-17] VITALS (13 sets, daily range): BP systolic 98–141; BP diastolic 51–89
[2024-04-17 03:52] LABS: BASOPHILS ABSOLUTE AUTO 0.04 K/mm3 (0.00-0.23); BASOPHILS PERCENT AUTO 0 % (0-2); EOSINOPHILS ABSOLUTE AUTO 0.05 K/mm3 (0.00-0.68); EOSINOPHILS PERCENT AUTO 1 % (0-6); Hemoglobin 14.3 g/dL (11.5-16.0); IMMATURE GRAN ABSOLUTE AUTO 0.05 K/mm3 (0.00-0.10); IMMATURE GRAN PERCENT AUTO 1 % (0-1); LYMPHOCYTES ABSOLUTE AUTO 0.86 K/mm3 (0.84-5.20); LYMPHOCYTES PERCENT AUTO 9 % (21-46); MONOCYTES ABSOLUTE AUTO 0.68 K/mm3 (0.16-1.47); MONOCYTES PERCENT AUTO 7 % (4-13); Mean Corpuscular HGB 32.8 pg (26.0-34.0); Mean Corpuscular Volume 96 fL (80-100); Mean Platelet Volume 11.8 fL (9.1-12.4); NEUTROPHILS ABSOLUTE AUTO 7.47 K/mm3 (1.96-9.15); NEUTROPHILS PERCENT AUTO 82 % (41-73); Platelet Count 174 K/mm3 (150-400); RDW Standard Deviation 50.4 fL (35.1-46.3); Red Blood Cell Count 4.36 M/mm3 (3.80-5.20); White Blood Cell Count 9.15 K/mm3 (4.00-11.30)
[2024-04-17 04:12] LABS: Bun/Creatinine Ratio 19.5 (12.0-20.0); Calcium, Blood 9.7 mg/dL (8.5-10.1); Creatinine, Blood 1.28 mg/dL (0.40-1.00); Potassium, Blood 5.1 mmol/L (3.5-5.5)
[2024-04-17] MEDS ORDERED: Dose Adjust by Pharmacy XX STA ×3 (05:05→21:07)
[2024-04-17] MEDS ORDERED: Levothyroxine Sodium 0.05 MG Tab PO SCH (06:00)
--- NOTE | 2024-04-17 06:38 | NUR ---
SHIFT SUMMARY PATIENT WAKES TO VERBAL STIMULI. POLISH SPEAKING ONLY. SON AT BEDSIDE DURING THE NIGHT TO ASSIST WITH COMMUNICATION. PATIENT ONLY REPLYING TO YES AND NO QUESTIONS. RIGHT SIDE FLACCID. LEFT SIDE STRONG AND NO NOTED DEFECITS. PATIENT TRACKING STAFF WHEN SPEAKING BUT WILL NOT FOLLOW COMMANDS DURING NEURO CHECKS. NO CHANGES DURING THE NIGHT. BP STABLE. ON RA WITH SPO2 >90%. PATIENT ABLE TO COMMUNICATE BATHROOM NEEDS TO SON. PUREWICK IN PLACE, USING BEDPAN FOR BMs. NPO AT THIS TIME D/T NEUROLOGICAL STATUS. HEPARIN INFUSING PER EMAR. NO OTHER CHANGES, WILL REPORT TO DAY SHIFT RN.
[2024-04-17] MEDS ORDERED: Insulin Regular 100 UNIT/ML 10ML Vial SC SCH ×2 (07:30→12:00)
[2024-04-17] MEDS ORDERED: Lisinopril 5 MG Tab PO SCH (09:00)
[2024-04-17] MEDS ORDERED: Clopidogrel Bisulfate 75 MG Tab PO SCH (09:00)
[2024-04-17] MEDS ORDERED: Atorvastatin 40 MG Tab PO SCH (09:00)
[2024-04-17] MEDS ORDERED: Aspirin 81 MG Chew PO SCH (09:00)
[2024-04-17] MEDS ORDERED: Amiodarone HCl 200 MG Tab PO SCH (09:00)
[2024-04-17] MEDS ORDERED: Enoxaparin 30 MG/0.3 ML SYR SC SCH (09:00)
[2024-04-17] MEDS ORDERED: NS 1,000 ML IV SCH (10:05)
--- NOTE | 2024-04-17 13:45 | NUR ---
ASSUMED CARE OF PT AT 0700 THIS AM. PT AWAKE AND ALERT, INTERACTING WITH STAFF AND FAMILY. R SIDE REMAINS FLACCID WITH R SIDED FACIAL DROOP. PT IS TRACKING MOVEMENT, SPEAKING WITH STAFF AND FAMILY. FOLLOWS COMMANDS FOR NEURO ASSESSMENT WITH FAMILY TRANSLATING THE INSTRUCTIONS TO HER IN MONGOLIAN. HEPARIN INFUSING PER PHARMACY ORDERS. DR IQBAL AT BEDSIDE THIS AM FOR ROUNDS, AGREES WITH KEEPING PT NPO UNTIL EVALUATED BY SPEACH THERAPY TOMORROW, ORDER PLACED. DR IQBAL V/O NS @ 50ML HR FOR GENTLE HYDRATION WHILE NPO. ORAL CARE AND SUPPLIES PROVIDED. PT/FAMILY EDUCATED ON PLAN OF CARE FOR TODAY. NO QUESTIONS OR CONCERNS AT THIS TIME. BED IN LOWEST, LOCKED POSITION. CALL LIGHT IN REACH. WILL CONTINUE TO MONITOR.
[2024-04-17] MEDS ORDERED: Pantoprazole Sodium 40 MG Injection IV SCH (17:05)
[2024-04-17] MEDS ORDERED: FentaNYL Citrate 50 MCG/ML 2 ML Injection IV PRN (17:05)
--- NOTE | 2024-04-17 18:20 | NUR ---
AT APROX 1645 PT'S FAMILY REPORTED PT'S COMPLAINT OF CHEST PAIN, SUB STERNAL, NON-RADIATING. PT IS NOT ABLE TO GIVE MANY DETAILS ABOUT THE PAIN. PT IS OCCASIONALLY MOANING QUIETLY, FACE PAIN SCALE 5. SEE DOCUMENTED VS. DR IQBAL NOTIFIED AND NEW ORDERS PLACED AND IMPLEMENTED. TROPONIN DRAWN AND 1V CXR COMPLETED AT THIS TIME. NO EKG D/T BI-V PACEMAKER. FSBS 101. DOSE OF IV FENTANYL GIVEN FOR PAIN, PT STATES HER PAIN HAS RESOLVED. FACE SCALE 0. NO OTHER COMPLAINTS AT THIS TIME. FAMILY REMAINS AT BEDSIDE. CALL [facility] IN REACH. BED IN LOWEST, LOCKED POSITION. WILL CONTINUE TO MONITOR AND GIVE REPORT TO NOC SHIFT RN.
--- NOTE | 2024-04-17 18:58 | NUR ---
UPDATE: TROPONIN RESULT 1637, VIGNESH ENGINE LATHE TENDER NOTIFIED. DR OROZCO TO PT BEDSIDE TO [facility]. EKG OBTAINED. CONTINUE HEPARIN GTT. NO FURTHER ORDERS AT THIS TIME. PT IS RESTING COMFORTABLY W FAMILY AT BEDSIDE.
[2024-04-17] MEDS ORDERED: Aspirin 300 MG Supp PR SCH (21:00)
[2024-04-17] MEDS ORDERED: Aspirin 81 MG Chew PO ONE (21:30)
[2024-04-18 03:59] LABS: Hematocrit 39.8 % (33.0-51.0); Hemoglobin 13.3 g/dL (11.5-16.0); Mean Platelet Volume 12.2 fL (9.1-12.4); Platelet Count 163 K/mm3 (150-400)
[2024-04-18 04:14] VITALS: BP 100/67
[2024-04-18] MEDS ORDERED: Clarify Drug Order XX ONE (04:25)
--- NOTE | 2024-04-18 06:39 | NUR ---
PT STABLE THROUGHOUT THE SHIFT. PT AOX4, RT SIDED HEMIPARESIS REMAINS. MINIMAL TO NO FACIAL DROOP NOTED TO RIGHT SIDE. PT TOLERATING HEPARIN DRIP WELL NO S/S BLEEDING/LARGE BRUISING. PT DOES HAVE SMALL BRUISING FROM MULTIPLE BLOOD DRAWS. PT ALSO HAS SMALL SCAB ON LIP THAT IS STABLE AT THIS TIME. FAMILY AT BEDSIDE OVER NIGHT. PT HAS HAD MINIMAL URINE OUTPUT THIS SHIFT, ONLY 100ML OUT TO PUREWICK CANISTER. BLADDER SCAN DONE AND 270ML NOTED. PT HAS BEEN NPO THIS SHIFT, LAST CBG 77. PT REMAINS COOPERATIVE AND PLEASANT, GENERAL COMMUNICATION DONE THROUGH FAMILY.
--- NOTE | 2024-04-18 06:42 | NUR ---
PT WAS ABLE TO SWALLOW WATER AT THE BEGINNING OF THE SHIFT W/O SIGNS OF ASPIRATION. NO DIFFICULTY WITH SWALLOWING. PT ABLE TO TAKE PO MEDS W/O PROBLEM. PT HAS REMAINED NPO OTHERWISE. PT HAS BEEN USING MOUTH SWABS FOR DRY MOUTH.
[2024-04-18 08:17] VITALS: BP 125/69
[2024-04-18 09:03] VITALS: BP 137/68
[2024-04-18] MEDS ORDERED: Dose Adjust by Pharmacy XX STA (10:45)
[2024-04-18] MEDS ORDERED: ATOR10 PO (11:55)
--- NOTE | 2024-04-18 12:09 | NUR ---
Upon receiving a referral for spiritual care, I visited the patient. Her room is full of family members. Only the Gdtr, speaks Nigerien with great proficiency all others spoke Nigerien but with some struggle. The gdtr translated for me when my limited Senegalese failed. Patient is pleasant and is struggling to process the depth of her stroke and how she will manage. She is tearful at times. Myself and the family do well in comforting her and encouraging her up to laughter. I provided anxiety containment, therapeutic listening, prayer and hugd to uplift and inspire the patient. She and the family showed signs of increased peace. I will continue to remain available to patient and family.
[2024-04-18 13:15] VITALS: BP 107/53
--- NOTE | 2024-04-18 13:44 | NUR ---
ASSUMED CARE OF PT AT 0700 THIS AM. PT RESTING QUIETLY IN BED WITH FAMILY AT BEDSIDE. SPEACH THERAPY IN TO SEE PT AND CLEARED FOR PO INTAKE. PT TOLERATED PO DIET/MEDICATIONS W/O ANY COMPLICATIONS NOTED. PT C/O HEADACHE AND LATER HEAD PRESSURE/NUMBNESS. NEURO ASSESSMENT REMAINED UNCHANGED. DR AMARAL NOTIFIED@1000. NO NEW ORDERS. NEURO CHECKS Q 2 HRS. HEPARIN INFUSING PER ORDERS. FAMILY REMAINS AT BEDSIDE. BED IN LOWEST, LOCKED POSITION, CALL LIGHT IN REACH. WILL CONTINUE TO MONITOR.
[2024-04-18 16:24] VITALS: BP 135/67
[2024-04-18] MEDS ORDERED: Insulin Regular 100 UNIT/ML 10ML Vial SC SCH (16:30)
--- NOTE | 2024-04-18 18:07 | NUR ---
NO ACUTE CHANGES SINCE LAST NOTE. NO NEW NEURO DEFICITS NOTED. PT HAS BEEN RESTING COMFORTABLY WITH FAMILY AT BEDSIDE. GOOD URINE OUTPUT. HEPARIN GTT CONTINUES AT PRESCRIBED RATE. PT TOLERATING PO INTAKE WITHOUT DIFFICULTY. NO NEEDS IDENTIFIED AT THIS TIME. FAMILY AT BEDSIDE. BED IN LOWEST, LOCKED POSITION AND CALL LIGHT IN REACH. WILL CONTINUE TO MONITOR AND GIVE REPORT TO NOC SHIFT RN.
--- NOTE | 2024-04-18 18:31 | NUR ---
PT C/O HEAD PRESSURE, PROVIDER WAS NOTIFIED AT 1000. WORKED WITH SPEECH THERAPY AND WAS CLEARED FOR REGUALR DIET, PT IS TOLERATING WELL. NO ACUTE NEURO CHANGES. FAMILY HAS BEEN AT BEDSIDE. URINE OUTPUT IS GOOD. PT RESTED COMFORTABLY THROUGH THE DAY. WILL CONTINUE TO MONITOR.
[2024-04-18 19:35] VITALS: BP 122/63
[2024-04-19 00:19] VITALS: BP 106/56
[2024-04-19 03:31] LABS: BASOPHILS ABSOLUTE AUTO 0.05 K/mm3 (0.00-0.23); BASOPHILS PERCENT AUTO 1 % (0-2); EOSINOPHILS ABSOLUTE AUTO 0.27 K/mm3 (0.00-0.68); EOSINOPHILS PERCENT AUTO 4 % (0-6); Hematocrit 37.9 % (33.0-51.0); Hemoglobin 12.7 g/dL (11.5-16.0); IMMATURE GRAN ABSOLUTE AUTO 0.03 K/mm3 (0.00-0.10); IMMATURE GRAN PERCENT AUTO 1 % (0-1); LYMPHOCYTES PERCENT AUTO 20 % (21-46); MONOCYTES ABSOLUTE AUTO 0.51 K/mm3 (0.16-1.47); MONOCYTES PERCENT AUTO 8 % (4-13); Mean Corpuscular HGB 32.6 pg (26.0-34.0); Mean Corpuscular HGB Conc 33.5 g/dL (31.5-36.5); Mean Corpuscular Volume 97 fL (80-100); Mean Platelet Volume 12.4 fL (9.1-12.4); NEUTROPHILS ABSOLUTE AUTO 4.38 K/mm3 (1.96-9.15); NEUTROPHILS PERCENT AUTO 67 % (41-73); Platelet Count 147 K/mm3 (150-400); RDW Coefficient Variation 14.4 % (11.7-14.2); RDW Standard Deviation 51.4 fL (35.1-46.3); White Blood Cell Count 6.54 K/mm3 (4.00-11.30)
[2024-04-19 03:52] LABS: Albumin, Blood 2.8 g/dL (3.4-5.0); Albumin/Globulin Ratio 0.9 (0.8-1.8); Bilirubin, Total 0.6 mg/dL (0.1-1.0); Bun/Creatinine Ratio 23.4 (12.0-20.0); Calcium, Blood 8.6 mg/dL (8.5-10.1); Creatinine, Blood 0.98 mg/dL (0.40-1.00); Potassium, Blood 4.5 mmol/L (3.5-5.5); Total Protein, Blood 5.8 g/dL (6.4-8.2)
[2024-04-19] MEDS ORDERED: Clarify Drug Order XX ONE (04:25)
[2024-04-19 05:08] VITALS: BP 134/61
--- NOTE | 2024-04-19 07:03 | NUR ---
PT STABLE THROUGHOUT THE SHIFT. RT HEMIPARESIS PERSISTS. PT ABLE TO SPEAK CLEARLY AND IS AOX4. PT HAS NO PROBLEMS DRINKING OR EATING. PT HAS HAD GOOD URINARY OUTPUT WITH PUREWICK. VITAL SIGNS REMAIN WNL. FAMILY AT BEDSIDE TO HELP WITH COMMUNICATION.
[2024-04-19 07:49] VITALS: BP 130/66
[2024-04-19 15:49] VITALS: BP 132/74
[2024-04-19] MEDS ORDERED: DEXTROMETHORPHAN/BENZOCAINE 1 EACH LOZENGE MT PRN (16:10)
--- NOTE | 2024-04-19 17:36 | NUR ---
SHIFT SUMMARY PT IS FULLY ALERT AND INTERACTIVE W/ STAFF AND FAMILY, SHE IS ABLE TO MAKE HER NEEDS KNOWN AND FOLLOWS COMMANDS. R SIDE IS NOTED TO BE FLACCID. BP STABLE, HR PACED IN 70'S PER TELE REPORT. SHE HAS DENIED FEELINGS OF CHEST PAIN/PRESSURE WELL FEELING LIGHTHEADED/DIZZY. SHE DID REPORT 10/10 PAIN DUE TO SORE THROAT, DR. AMARAL MADE AWARE AND PT GIVEN ORDERED LOZENGES TO WHICH SHE REPORTED MUCH RELIEF. SHE HAS BEEN BEDREST T/O SHIFT W/ Q2 TURNING TO KEEP OFF OF PRESSURE POINTS. SHE HAS HAD FAMILY AT BEDSIDE T/O SHIFT AND THEY ARE MUCH INVOLVED IN HER CARE. PT IS CURRENTLY SITTING IN BED EATING DINNER, CALL LIGHT IS W/IN REACH.
[2024-04-19 19:34] VITALS: BP 136/68
[2024-04-19 19:56] LABS: Adenovirus Not Detected (NOT DETECT); Bordetella pertussis Not Detected (NOT DETECT); Chlamydophila pneumoniae Not Detected (NOT DETECT); Coronavirus 229E Not Detected (NOT DETECT); Coronavirus HKU1 Not Detected (NOT DETECT); Coronavirus NL63 Not Detected (NOT DETECT); Coronavirus OC43 Not Detected (NOT DETECT); Human Metapneumovirus Not Detected (NOT DETECT); Human Rhinovirus/Enterovirus Not Detected (NOT DETECT); Influenza A/2009-H1 Not Detected (NOT DETECT); Influenza A/H1 Not Detected (NOT DETECT); Influenza A/H3 Not Detected (NOT DETECT); Influenza B Not Detected (NOT DETECT); Mycoplasma pneumoniae Not Detected (NOT DETECT); Parainfluenza Virus 1 Not Detected (NOT DETECT); Parainfluenza Virus 2 Not Detected (NOT DETECT); Parainfluenza Virus 3 Not Detected (NOT DETECT); Parainfluenza Virus 4 Not Detected (NOT DETECT); Respiratory Syncytial Virus Not Detected (NOT DETECT); SARS-Cov-2 (COVID-19), BioFire Not Detected (NOT DETECT)
[2024-04-20] VITALS (7 sets, daily range): BP systolic 104–151; BP diastolic 54–72
[2024-04-20] MEDS ORDERED: Heparin Sodium,Porcine 5,000 UNIT/0.5 ML SDV SC SCH
[2024-04-20 04:05] LABS: BASOPHILS ABSOLUTE AUTO 0.06 K/mm3 (0.00-0.23); BASOPHILS PERCENT AUTO 1 % (0-2); EOSINOPHILS ABSOLUTE AUTO 0.25 K/mm3 (0.00-0.68); EOSINOPHILS PERCENT AUTO 4 % (0-6); Hematocrit 41.5 % (33.0-51.0); Hemoglobin 13.8 g/dL (11.5-16.0); IMMATURE GRAN ABSOLUTE AUTO 0.04 K/mm3 (0.00-0.10); IMMATURE GRAN PERCENT AUTO 1 % (0-1); LYMPHOCYTES ABSOLUTE AUTO 1.21 K/mm3 (0.84-5.20); LYMPHOCYTES PERCENT AUTO 20 % (21-46); MONOCYTES ABSOLUTE AUTO 0.52 K/mm3 (0.16-1.47); MONOCYTES PERCENT AUTO 9 % (4-13); Mean Corpuscular HGB 32.5 pg (26.0-34.0); Mean Corpuscular HGB Conc 33.3 g/dL (31.5-36.5); Mean Corpuscular Volume 98 fL (80-100); Mean Platelet Volume 12.3 fL (9.1-12.4); NEUTROPHILS ABSOLUTE AUTO 3.85 K/mm3 (1.96-9.15); NEUTROPHILS PERCENT AUTO 65 % (41-73); Platelet Count 160 K/mm3 (150-400); RDW Coefficient Variation 14.3 % (11.7-14.2); RDW Standard Deviation 51.4 fL (35.1-46.3); Red Blood Cell Count 4.25 M/mm3 (3.80-5.20); White Blood Cell Count 5.93 K/mm3 (4.00-11.30)
[2024-04-20 04:22] LABS: Bun/Creatinine Ratio 16.2 (12.0-20.0); Creatinine, Blood 1.05 mg/dL (0.40-1.00); Potassium, Blood 4.1 mmol/L (3.5-5.5)
--- NOTE | 2024-04-20 06:33 | NUR ---
PT STABLE THROUGHOUT THE SHIFT. VITAL SIGNS WNL. PT REMAINS AOX4. PT DOES HAVE IMPROVED MOVEMENT TO RIGHT HAND, ABLE TO FLEX AND EXTEND FINGERS. PT DOES HAVE VERY WEAK PLASTIC OUTFITTER TO RIGHT HAND. RT ARM NOT ABLE TO MOVE AT THIS TIME AT ELBOW OR SHOULDER. RT LEG REMAINS FLACCID. LEFT SIDE REMAINS AT WNL. PT HAS HAD GOOD URINARY OUTPUT BY PUREWICK. PT ABLE TO TAKE PO W/O PROBLEM. FAMILY AT BEDSIDE TO ASSIST WITH GENERAL COMMUNICATION.
--- NOTE | 2024-04-20 06:36 | NUR ---
2030: HEPARIN INFUSION STOPPED AND D/C'D FROM PATIENT. IV FLUIDS CONTINUE AT 100ML/HR W/O PROBLEM.
[2024-04-20] MEDS ORDERED: Aspirin 81 MG Chew PO SCH (09:00)
[2024-04-20] MEDS ORDERED: Empagliflozin 10 MG TAB PO SCH (09:00)
[2024-04-20] MEDS ORDERED: Clopidogrel Bisulfate 75 MG Tab PO SCH (09:00)
--- NOTE | 2024-04-20 13:37 | NUR ---
CALLED TO LET FAMILY KNOW ABOUT THE RESULTS FROM THE PACEMAKER BEING INTERRIGATED THIS MORNING. THIS RN LET FAMILY AND PATIENT KNOW THAT HER PACEMAKER BATTERIES ARE GOOD FOR 8 MORE MONTHS.
--- NOTE | 2024-04-20 18:48 | NUR ---
END OF SHIFT SUMMARY: PATIENT IS ALERT AND ORIENTED X4 AND ACTIVE IN HER CARE. HAS SOME RIGHT SIDED WEAKNESS FROM A CVA. IS ON TELE SHOWING PACER WITH RATE IN 60'S. SATTING >92% ON ROOM AIR. IS SPANISHS PEEKING ONLY AND FAMILY HAS BEEN IN ROOM AND THE ASPHALT TAMPER PHONE CAN BE USED. WORKED WITH PT TODAY AND WAS VERY TIRED AFTER. COMPLAINED ABOUT FEELING LIKE HER HEAD WAS HEAVY BUT REPORTED THAT IT DID NOT HURT JUST FELT VERY HEAVY. IS ACHS BLOOD SUGAR AND NEEDED SOME COVERAGE. IS A HEAVY 2 PERSON ASSIST DUE TO THAT RIGHT SIDED WEAKNESS. USED THE BED SIDE COMMODE ONCE AND ASKED TO USE THE BED DASH THE NEXT TIME. HAS A PUREWICK PLACED DUE TO MOBILITY ISSUES. PLAN IS TO D/C 04/21 TO REHAB FACILLITY. GOT ACCEPTED TO [facility] AND INSURANCE ACCEPTED SO PATIENT WILL BE GOING. WILL REPORT TO ONCOMING ICE MAKER RN.
[2024-04-21 04:28] VITALS: BP 129/65
[2024-04-21 04:50] LABS: BASOPHILS ABSOLUTE AUTO 0.08 K/mm3 (0.00-0.23); BASOPHILS PERCENT AUTO 1 % (0-2); EOSINOPHILS ABSOLUTE AUTO 0.31 K/mm3 (0.00-0.68); EOSINOPHILS PERCENT AUTO 5 % (0-6); Hematocrit 39.5 % (33.0-51.0); Hemoglobin 13.6 g/dL (11.5-16.0); IMMATURE GRAN ABSOLUTE AUTO 0.03 K/mm3 (0.00-0.10); IMMATURE GRAN PERCENT AUTO 0 % (0-1); LYMPHOCYTES PERCENT AUTO 17 % (21-46); MONOCYTES ABSOLUTE AUTO 0.53 K/mm3 (0.16-1.47); MONOCYTES PERCENT AUTO 8 % (4-13); Mean Corpuscular HGB 32.9 pg (26.0-34.0); Mean Corpuscular HGB Conc 34.4 g/dL (31.5-36.5); Mean Corpuscular Volume 95 fL (80-100); Mean Platelet Volume 12.5 fL (9.1-12.4); NEUTROPHILS ABSOLUTE AUTO 4.74 K/mm3 (1.96-9.15); NEUTROPHILS PERCENT AUTO 69 % (41-73); Platelet Count 147 K/mm3 (150-400); RDW Coefficient Variation 14.3 % (11.7-14.2); RDW Standard Deviation 50.2 fL (35.1-46.3); Red Blood Cell Count 4.14 M/mm3 (3.80-5.20); White Blood Cell Count 6.89 K/mm3 (4.00-11.30)
[2024-04-21 06:01] LABS: Bun/Creatinine Ratio 16.8 (12.0-20.0); Calcium, Blood 9.1 mg/dL (8.5-10.1); Creatinine, Blood 1.01 mg/dL (0.40-1.00); Potassium, Blood 4.2 mmol/L (3.5-5.5)
[2024-04-21 07:30] VITALS: BP 105/59
[2024-04-21] MEDS ORDERED: CLOP75 PO (07:57)
[2024-04-21] MEDS ORDERED: JARDIANCE10 MG PO (07:58)
[2024-04-21] MEDS ORDERED: Lisinopril2.5 MG PO (08:06)
[2024-04-21] MEDS ORDERED: PANT40 PO (08:07)
[2024-04-21 09:43] VITALS: BP 117/65
--- NOTE | 2024-04-21 10:44 | NUR ---
ASSUMPTION OF CARE PT ALERT, ORIETNED TO SELF, PLACE, YEAR. SHE IS CALM AND COOPERATIVE TO CARE. DUAL PACED RHYTHM, HR IN THE 60'S, SBP IN THE 110'S, DENIES CP/PRESSURE, NUMB/TINGLING. O2 >94% ON RA, DENIES SOB. +BS, DENIES PAIN/TENDERNESS. PUREWICK IN PLACE. PT WITH RIGHT SIDED DEFICITS, LIMITED TO NO RANGE OF MOTION IN THE RIGHT ARM. PT/OT TO WORK WITH PT. [facility]. PT TO D/C TO SNF TODAY. CALL LIGHT IN REACH. PT DENIES QUESTIONS/CONDERNS AT THIS TIME, WILL CONTIUE TO MONITOR PT.
--- NOTE | 2024-04-21 12:06 | NUR ---
left for snf patient left to [facility] at 1206. patient transfered a two person assist to wheelchair and left with transport and all belongings. patient left in no distress.
--- NOTE | 2024-04-21 13:36 | NUR ---
CALLED AND GAVE REPORT TO [facility] MACHINE ASSEMBLER FOR PULLER OVER AT 1335.
== END 2024-04-21 12:06 | DRG 64 ==
LOC: ER 12:16 → MEDS 12:17 → PCU 20:06
PROVIDERS: Internal Medicine; Student in an Organized Health Care Education/Training Program; ADMIT Family Medicine
DX: I63.231 Cerebral infarction due to unspecified occlusion or stenosis of right carotid arteries (principal); I21.A1 Myocardial infarction type 2; G81.91 Hemiplegia, unspecified affecting right dominant side; I48.21 Permanent atrial fibrillation; I13.0 Hypertensive heart and chronic kidney disease with heart failure and stage 1 through stage 4 chronic kidney disease, or unspecified chronic kidney disease; I50.22 Chronic systolic (congestive) heart failure; I44.2 Atrioventricular block, complete; R29.704 NIHSS score 4; Z28.21 Immunization not carried out because of patient refusal; R47.01 Aphasia; R29.810 Facial weakness; I25.10 Atherosclerotic heart disease of native coronary artery without angina pectoris; N18.30 Chronic kidney disease, stage 3 unspecified; E11.22 Type 2 diabetes mellitus with diabetic chronic kidney disease; E78.5 Hyperlipidemia, unspecified; D63.1 Anemia in chronic kidney disease; F41.1 Generalized anxiety disorder; Z95.0 Presence of cardiac pacemaker; Z79.82 Long term (current) use of aspirin; Z79.84 Long term (current) use of oral hypoglycemic drugs; Z79.890 Hormone replacement therapy; Z79.899 Other long term (current) drug therapy; Z90.49 Acquired absence of other specified parts of digestive tract
CPT/HCPCS: 0202U; 36415; 70450; 70496; 70498; 71045; 80048; 80053; 80061; 82947; 84484; 85014; 85018; 85025; 85049; 85520; 85610; 85730; 92610; 93281; 93306; 97110; 97112; 97161; 97165; 97530; 99285-25; A9270; G0378; J1644; J1815; J2405; J2470; J3010; J7030; Q9967

== ENCOUNTER 2025-03-09 11:33 | Inpatient (IN) | payer OTHER ==
[~2025-03-09] VITALS: Ht 157.5 cm; Wt 70.3 kg
[~2025-03-09 11:33] MED LIST changes: +ATOR10 PO; +ATOR20; +CLOP75 PO; +JARDIANCE10 MG PO; +LEVOTHYROXINE50 MC9 PO; +Lisinopril2.5 MG PO; +PANT40 PO
[2025-03-09] MEDS ORDERED: Amiodarone HCl 450 MG in NS 250 ML IV SCH (11:55)
[2025-03-09] MEDS ORDERED: Amiodarone HCl 150 MG in NS 100 ML IV ONE (11:55)
[2025-03-09 12:17] LABS: BASOPHILS ABSOLUTE AUTO 0.04 K/mm3 (0.00-0.23); BASOPHILS PERCENT AUTO 1 % (0-2); EOSINOPHILS ABSOLUTE AUTO 0.25 K/mm3 (0.00-0.68); EOSINOPHILS PERCENT AUTO 3 % (0-6); Hematocrit 38.5 % (33.0-51.0); Hemoglobin 12.6 g/dL (11.5-16.0); IMMATURE GRAN ABSOLUTE AUTO 0.02 K/mm3 (0.00-0.10); IMMATURE GRAN PERCENT AUTO 0 % (0-1); LYMPHOCYTES ABSOLUTE AUTO 1.32 K/mm3 (0.84-5.20); LYMPHOCYTES PERCENT AUTO 18 % (21-46); MONOCYTES ABSOLUTE AUTO 0.57 K/mm3 (0.16-1.47); MONOCYTES PERCENT AUTO 8 % (4-13); Mean Corpuscular HGB Conc 32.7 g/dL (31.5-36.5); Mean Corpuscular Volume 91 fL (80-100); NEUTROPHILS ABSOLUTE AUTO 5.30 K/mm3 (1.96-9.15); NEUTROPHILS PERCENT AUTO 71 % (41-73); NRBC ABSOLUTE 0.00 K/mm3 (0.00-0.02); NRBC Auto 0.0 /100 WBC (0.0-0.2); Platelet Count 184 K/mm3 (150-400); RDW Coefficient Variation 14.2 % (11.7-14.2); RDW Standard Deviation 47.7 fL (35.1-46.3)
[2025-03-09 13:00] LABS: Alanine Aminotransfer (ALT/SGP 22.0 U/L (12-78); Albumin, Blood 3.5 g/dL (3.4-5.0); Albumin/Globulin Ratio 1.0 (0.8-1.8); Anion Gap 11.0 mmol/L (3-11); Aspartate Aminotrans (AST/SGOT 21.0 U/L (12-37); Bilirubin, Total 0.5 mg/dL (0.1-1.0); Blood Urea Nitrogen 27.0 mg/dL (8-24); CO2, Blood 24.0 mmol/L (21-32); Calcium, Blood 8.3 mg/dL (8.5-10.1); Chloride, Blood 107.0 mmol/L (98-108); Creatinine, Blood 0.95 mg/dL (0.40-1.00); Globulin, Blood 3.6 g/dL (2.2-4.0); Glucose, Blood 159.0 mg/dL (70-99); Potassium, Blood 4.7 mmol/L (3.5-5.5); Sodium, Blood 137.0 mmol/L (136-145); Total Protein, Blood 7.1 g/dL (6.4-8.2)
[2025-03-09] MEDS ORDERED: FLU VACC TS2025(65UP)/MF59C/PF 45 MCG/0.5 ML SYRINGE IM SCH (14:40)
[2025-03-09] MEDS ORDERED: ACET325 PO (15:51)
[2025-03-09] MEDS ORDERED: Isosorbide Mono30 MG PO (15:52)
[2025-03-09] MEDS ORDERED: SIME80CH PO (15:54)
[2025-03-09] MEDS ORDERED: ONDA4ODT MM (15:54)
[2025-03-09 17:46] VITALS: BP 91/59
[2025-03-09] MEDS ORDERED: NS 1,000 ML IV SCH ×2 (18:00→18:10)
--- NOTE | 2025-03-09 18:34 | NUR ---
PCU ADMIT PT BROUGHT TO PCU-8 BY CURTIS FROM ER @ APPROX 1730. PT ALERT, MAORI SPEAKING ONLY. INTERPRETTER PHONE USED. PT REPORTS CURRENT CP DESCRIBING PAIN "LIKE BEING PUNCHED OFF & ON. THERE'S NO NUMBER, IT'S JUST STRONG. IT'S HARD TO TALK. I FEEL LIKE I CAN'T BREATHE." PT SPEAKING IN LONG SENTENCES TO INTERPRETTER. MD PEREZ NOTIFIED OF PT CP. W/ ORDER FOR ONE TIME PO MS IR 15 MG. EKG DONE & MEDICATION GIVEN. LAB TO FOR DRAW. AMIO GTT INFUSING PER ORDERS. AWAITING HEPARIN GTT ORDERS PER PHARMACY.
[2025-03-09 18:38] LABS: Anti-Xa UFH, PHA Monitoring <0.10 IU/mL; D-Dimer, Quantitative 1.19 mg/L FEU (0.00-0.52); Prothrombin Time Results 11.6 Sec (9.7-11.5)
--- NOTE | 2025-03-09 18:45 | NUR ---
PCU ADMIT PT BROUGHT TO PCU-8 BY CURTIS FROM ER @ APPROX 1730. PT ALERT, HEBREW SPEAKING ONLY. INTERPRETTER PHONE USED. PT REPORTS CURRENT CP DESCRIBING PAIN "LIKE BEING PUNCHED OFF & ON. THERE'S NO NUMBER, IT'S JUST STRONG. IT'S HARD TO TALK. I FEEL LIKE I CAN'T BREATHE." PT SPEAKING IN LONG SENTENCES TO INTERPRETTER. MD PEREZ NOTIFIED OF PT CP. W/ ORDER FOR ONE TIME PO MS IR 15 MG. EKG DONE & MEDICATION GIVEN. LAB TO FOR DRAW. AMIO GTT INFUSING PER ORDERS. AWAITING HEPARIN GTT ORDERS PER PHARMACY.
[2025-03-09] MEDS ORDERED: Heparin Sodium,Porcine/0.5 NS 500 ML IV SCH (19:05)
[2025-03-09] MEDS ORDERED: Heparin Sodium 5000 Units/ML 1ML MDV IV ONE (19:05)
[2025-03-09 20:30] VITALS: BP 127/74
[2025-03-09] MEDS ORDERED: Polyethylene Glycol 3350 17 gm PO SCH (21:00)
[2025-03-09] MEDS ORDERED: ARTIFICIAL TEAR15 M2 BOTHEYES (23:19)
[2025-03-09] MEDS ORDERED: DICLOFENAC SOD100 GM TOP (23:23)
[2025-03-09 23:30] VITALS: BP 118/69
[2025-03-10] VITALS (8 sets, daily range): BP systolic 110–135; BP diastolic 60–88
[2025-03-10] MEDS ORDERED: Ondansetron HCl 2 MG / ML 2ML Vial IV ONE (00:55)
[2025-03-10] MEDS ORDERED: MIRALAX17 GM PO (01:00)
[2025-03-10] MEDS ORDERED: [UNRECOGNIZED DRUG - OTHER] BOTHEYES (01:04)
[2025-03-10] MEDS ORDERED: SYSTANE 0.4-0.315 ML BOTHEYES (01:06)
[2025-03-10] MEDS ORDERED: Dose Adjust by Pharmacy XX STA ×2 (01:46→09:48)
[2025-03-10 04:49] LABS: BASOPHILS ABSOLUTE AUTO 0.04 K/mm3 (0.00-0.23); BASOPHILS PERCENT AUTO 0 % (0-2); EOSINOPHILS ABSOLUTE AUTO 0.19 K/mm3 (0.00-0.68); EOSINOPHILS PERCENT AUTO 2 % (0-6); Hematocrit 36.9 % (33.0-51.0); Hemoglobin 11.9 g/dL (11.5-16.0); IMMATURE GRAN ABSOLUTE AUTO 0.03 K/mm3 (0.00-0.10); IMMATURE GRAN PERCENT AUTO 0 % (0-1); LYMPHOCYTES ABSOLUTE AUTO 1.09 K/mm3 (0.84-5.20); LYMPHOCYTES PERCENT AUTO 12 % (21-46); MONOCYTES ABSOLUTE AUTO 0.60 K/mm3 (0.16-1.47); MONOCYTES PERCENT AUTO 7 % (4-13); Mean Corpuscular HGB Conc 32.2 g/dL (31.5-36.5); Mean Corpuscular Volume 92 fL (80-100); NEUTROPHILS ABSOLUTE AUTO 7.05 K/mm3 (1.96-9.15); NEUTROPHILS PERCENT AUTO 78 % (41-73); NRBC ABSOLUTE 0.00 K/mm3 (0.00-0.02); NRBC Auto 0.0 /100 WBC (0.0-0.2); Platelet Count 177 K/mm3 (150-400); RDW Coefficient Variation 14.5 % (11.7-14.2); RDW Standard Deviation 49.0 fL (35.1-46.3)
[2025-03-10 05:28] LABS: C-REACTIVE PROTEIN, EXT RANGE 0.386 mg/dL (0.000-0.300); Magnesium, Blood 1.9 mg/dL (1.6-2.4); Phosphorus, Blood 3.7 mg/dL (2.5-4.9); Thyroid Stimulating Hormone 2.34 uIU/mL (0.360-4.800)
--- NOTE | 2025-03-10 06:24 | NUR ---
SHIFT SUMMARY PATIENT ALERT AND ORIENTED X4. ABLE TO COMMUNICATE WELL IN HER [place] APACHE LANGUAGE. MEDICATED PER EMAR FOR CHEST PAIN AND NAUSEA. CARDIOLOGY CONSULT CALLED INTO ANSWERING SERVICE. ON ROOM AIR WITH SPO2 >90%. VITAL SIGNS STABLE. CODE STATUS CHANGED PER DR HESS FROM DNR TO FULL CODE ON PATIENT REQUEST. WILL CONTINUE TO MONITOR. CALL LIGHT WITHIN REACH.
[2025-03-10] MEDS ORDERED: Ondansetron HCl 2 MG / ML 2ML Vial IV PRN (08:30)
[2025-03-10] MEDS ORDERED: Isosorbide Mononitrate 30 MG TABCR PO SCH (09:00)
[2025-03-10] MEDS ORDERED: HYDROmorphone HCl/Pf 1MG SYR IV PRN (13:10)
[2025-03-10] MEDS ORDERED: Amiodarone HCl 150 MG in NS 100 ML IV ONE (14:45)
[2025-03-10] MEDS ORDERED: Prochlorperazine Edisylate 10 mg Vial IV ONE (15:00)
[2025-03-10] MEDS ORDERED: Prochlorperazine Edisylate 10 mg Vial IV PRN (15:00)
[2025-03-10 17:34] LABS: Alanine Aminotransfer (ALT/SGP 31 U/L (12-78); Albumin, Blood 3.8 g/dL (3.4-5.0); Albumin/Globulin Ratio 1.0 (0.8-1.8); Anion Gap 11 mmol/L (3-11); Aspartate Aminotrans (AST/SGOT 30 U/L (12-37); Bilirubin, Direct 0.3 mg/dL (0.0-0.3); Bilirubin, Indirect 0.6 mg/dL (0.1-0.7); Bilirubin, Total 0.9 mg/dL (0.1-1.0); Blood Urea Nitrogen 24 mg/dL (8-24); CO2, Blood 23 mmol/L (21-32); Calcium, Blood 9.2 mg/dL (8.5-10.1); Chloride, Blood 107 mmol/L (98-108); Creatinine, Blood 1.10 mg/dL (0.40-1.00); Globulin, Blood 3.8 g/dL (2.2-4.0); Glucose, Blood 175 mg/dL (70-99); Magnesium, Blood 2.0 mg/dL (1.6-2.4); Phosphorus, Blood 3.5 mg/dL (2.5-4.9); Potassium, Blood 5.1 mmol/L (3.5-5.5); Sodium, Blood 136 mmol/L (136-145); Total Protein, Blood 7.6 g/dL (6.4-8.2)
--- NOTE | 2025-03-10 18:37 | NUR ---
Summary. Pt alert and communicating through family this shift. Pt very nauseated, vomiting multiple times throughout shift. Cardiology in to see pt today, pacemaker settings adjusted according to photographic laboratory technician RN. Anti-emetics used without good effect, pt remains nauseous. Attempted to use contractor general building phone without success, pt stated she could not understand contractor general building or was too nauseous to speak. Family attempted to interpret throughout the day with limited success. Pt unable to take po meds throughout shift due to nausea and vomiting. Amiodarone bolus given for tachycardia mid afternoon, see emar. See chart for further details.
--- NOTE | 2025-03-10 20:58 | NUR ---
PHYSICIAN COMMUNICATION CONTACTED AEROSOL SUPERVISOR RESIDENT, DR LARIOS, TO NOTIFY HER THAT THE PATIENT HASN'T HAD A BOWEL MOVENENT IN ABOUT 5 DAYS. AND THAT THE PATIENT HAS BEEN EXPERIENCING BACK PAIN AND NAUSEA TO THE POINT THAT SHE ISN'T ABLE TO TOLERATE PO MIRALAX. INFORMED HER THAT THE PATIENT IS WILLING TO TRY TAKING A SUPPOSITORY TO HELP HER HAVE A BOWEL MOVEMENT. ALSO DISCUSSED WITH DR LARIOS THAT THE PATIENT HASN'T EATEN OR DRANK PROPERLY IN SEVERAL DAYS DUE TO THE NAUSEA AND HAS NOT HAD MUCH URINE OUTPUT IN THE LAST 24 HOURS. BNP IS ELEVATED, HOWEVER PATIENT'S LUNG SOUNDS CLEAR AND NO EDEMA NOTED. DR LARIOS ORDERED NORMAL SALINE AT 50 ML/HR AND A ONE TIME DULCOLAX SUPPOSITORY.
[2025-03-10] MEDS ORDERED: NS 1,000 ML IV SCH (21:00)
[2025-03-11 03:45] VITALS: BP 117/62
[2025-03-11 05:24] LABS: Albumin, Blood 3.4 g/dL (3.4-5.0); Anion Gap 8 mmol/L (3-11); Blood Urea Nitrogen 26 mg/dL (8-24); CO2, Blood 25 mmol/L (21-32); Calcium, Blood 9.2 mg/dL (8.5-10.1); Chloride, Blood 108 mmol/L (98-108); Creatinine, Blood 1.01 mg/dL (0.40-1.00); Glucose, Blood 111 mg/dL (70-99); Phosphorus, Blood 3.2 mg/dL (2.5-4.9); Potassium, Blood 4.6 mmol/L (3.5-5.5); Sodium, Blood 136 mmol/L (136-145)
--- NOTE | 2025-03-11 06:52 | NUR ---
SHIFT SUMMARY PATIENT ALERT AND ORIENTED X4. HAD NO COMPLAINTS OF SHORTNESS OF BREATH, SHE DID EXPERIENCE SOME CHEST DISCOMFORT AND NAUSEA. PATIENT MEDICATED FOR NAUSEA AND CONSTIPATION. ON ROOM AIR WITH SPO2 >90%, VITAL SIGNS STABLE. NO ACUTE ISSUES NOTED OVERNIGHT. CALL LIGHT WITHIN REACH. WILL CONTINUE TO MONITOR.
--- NOTE | 2025-03-11 07:16 | NUR ---
assumption note: this rn to assume care of patient. patient is awaken easily and alert and orietned x4. vital signs stable. patient denied any chest pain/presure. no nausea/vomitting at this time. is asking to get up to the chair for breakfast. patient repositioned,call light within reach and stating nothing else is needed at this time.
[2025-03-11 07:18] VITALS: BP 116/80
--- NOTE | 2025-03-11 09:41 | NUR ---
MD ROUNDED: MD ROUNDED AND PATIENT REPORTED NOT FEELING NAUSEOUS AND FEELS THAT THE NAUSEA HAS IMPROVED. MD GAVE VERBAL ORDER TO CHANGE STATUS TO MEDICAL,AWAITING FOR CARDIOLGOST TO COME SEE HER WELL. [facility]
[2025-03-11 11:33] VITALS: BP 117/69
[2025-03-11 15:13] VITALS: BP 116/62
--- NOTE | 2025-03-11 17:15 | NUR ---
SHIFT SUMMARY: PATIENT IS ALERT AND ORIENTED X4 & COOPERATIVE WITH HER CARE, IS BULGARIAN SPEAKING ONLY. PATIENT IS SATTING >92% ON ROOM AIR. ON TELE SHOWING PACED RHYTHM WITH RATE IN 60 S. PATIENT WAS ABLE TO GET INTO THE CHAIR TODAY FOR MEALS WITH 2 PERSON, GAIT BELT AND FRONT WHEELED WALKER. PATIENT IS NOW MEDICAL STATUS WITH TELE AND DIDN T HAVE ANY BOUTS OF NAUSEA THROUGHOUT SHIFT. PATIENT FAMILY AT BEDSIDE THROUGHOUT THE SHIFT. PATIENT HAS PUREWICK FOR LIMITED MOBILITY ON HER RIGHT SIDE. PATIENT AWARE SHE CAN MOVE THROUGHOUT THE NIGHT AND WILLING. PATIENT WAS ABLE TO TOLERATE SMALL MEALS THROUGHOUT THE SHIFT. PATIENT CURRENTLY CHATTING WITH FAMILY, BED IN LOWEST LOCKED POSITION & CALL LIGHT WITHIN REACH.
[2025-03-11 20:00] VITALS: BP 113/63
[2025-03-12] VITALS (7 sets, daily range): BP systolic 100–121; BP diastolic 57–80
[2025-03-12 04:21] LABS: Albumin, Blood 3.4 g/dL (3.4-5.0); Anion Gap 8 mmol/L (3-11); Blood Urea Nitrogen 25 mg/dL (8-24); CO2, Blood 24 mmol/L (21-32); Calcium, Blood 9.3 mg/dL (8.5-10.1); Chloride, Blood 105 mmol/L (98-108); Creatinine, Blood 1.14 mg/dL (0.40-1.00); Glucose, Blood 104 mg/dL (70-99); Phosphorus, Blood 2.8 mg/dL (2.5-4.9); Potassium, Blood 4.4 mmol/L (3.5-5.5); Sodium, Blood 133 mmol/L (136-145)
--- NOTE | 2025-03-12 13:45 | NUR ---
UPDATE PER NIGHTSHIFT REPORT, PATIENT REFUSES USE OF MUSICAL ENGINEER PHONE AND PREFERS FOR FAMILY MEMBERS TO TRANSLATE FOR HER. PATIENT REPEATEDLY POINTING AT ABDOMEN, FAMILY MEMBERS NOT AT BEDSIDE, MUSICAL ENGINEER PHONE UTILIZED TO COMMUNICATE WITH PATIENT, PATIENT EXPRESSED NEED TO USE RESTROOM. 1415 PATIENT CALLED GRANDDAUGHTER, KARINA, TO VERIFY REFUSAL TO USE MUSICAL ENGINEER PHONE. PATIENT VERIFIED REFUSAL, STATING THAT SHE WOULD LIKE TO CALL KARINA OR FRIEND MIAH WHEN COMMUNICATION IS NEEDED IF FAMILY IS NOT PRESENT AT BEDSIDE.
--- NOTE | 2025-03-12 18:07 | NUR ---
SHIFT SUMMARY PATIENT IS ALERT AND ORIENTED, ABLE TO FOLLOW COMMANDS AND MAKE NEEDS KNOWN. PATIENT IS TURKISH SPEAKING, PATIENT DECLINES USE OF PHONE PRODUCTION STAGE MANAGER SYSTEM PREFERRING FAMILY TO TRANSLATE. VSS, PATIENT IS BIVENTRICULAR PACED, SPO2 >90% ON RA. PATIENT DENIES SHORTNESS OF BREATH, CHEST PAIN OR PRESSURE. PATIENT DID ENDORSE MILD DISCOMFORT IN UPPER ABDOMEN THAT WAS RELIEVED AFTER BOWEL MOVEMENT THIS SHIFT. PUREWICK IN PLACE AT START OF SHIFT, PATIENT DECLINED USE OF PUREWICK CATHETER STATING THAT SHE WILL CALL TO USE THE RESTROOM. PATIENT HAS RIGHT SIDED DEFICITS TO UPPER AND LOWER EXTREMITY DUE TO PAST CVA. PATIENT IS A 1-2 PERSON ASSIST TO THE BEDSIDE COMMODE. PATIENT IS UP IN BED, BED IN LOWEST POSITION, CALL LIGHT WITHIN REACH.
[2025-03-13 04:18] VITALS: BP 114/71
--- NOTE | 2025-03-13 04:36 | NUR ---
ASSUMED CARE OF PT AT 1900. PT AWAKE,ALERT AND ORIENTED X4. ABLE TO USE CALL LIGHT APPROPRIATELY. PT DECLINES PUREWICK; BREIF IN PLACE AND PT NOTIFIES RN WHEN CHANGES ARE NEEDED. ON 2L NC WHILE ASLEEP TO MAINTAIN O2 > 92%. BED IN LOWEST POSITION WITH CALL LIGHT WITHIN REACH.
[2025-03-13 05:36] LABS: Albumin, Blood 3.2 g/dL (3.4-5.0); Anion Gap 10 mmol/L (3-11); Blood Urea Nitrogen 25 mg/dL (8-24); CO2, Blood 23 mmol/L (21-32); Calcium, Blood 8.8 mg/dL (8.5-10.1); Chloride, Blood 107 mmol/L (98-108); Creatinine, Blood 1.10 mg/dL (0.40-1.00); Glucose, Blood 102 mg/dL (70-99); Phosphorus, Blood 3.2 mg/dL (2.5-4.9); Potassium, Blood 4.4 mmol/L (3.5-5.5); Sodium, Blood 136 mmol/L (136-145)
[2025-03-13 07:49] VITALS: BP 121/64
[2025-03-13 10:44] LABS: BASOPHILS ABSOLUTE AUTO 0.04 K/mm3 (0.00-0.23); BASOPHILS PERCENT AUTO 0 % (0-2); EOSINOPHILS ABSOLUTE AUTO 0.11 K/mm3 (0.00-0.68); EOSINOPHILS PERCENT AUTO 1 % (0-6); Hematocrit 38.9 % (33.0-51.0); Hemoglobin 12.8 g/dL (11.5-16.0); IMMATURE GRAN ABSOLUTE AUTO 0.04 K/mm3 (0.00-0.10); IMMATURE GRAN PERCENT AUTO 0 % (0-1); LYMPHOCYTES ABSOLUTE AUTO 1.11 K/mm3 (0.84-5.20); LYMPHOCYTES PERCENT AUTO 11 % (21-46); MONOCYTES ABSOLUTE AUTO 0.62 K/mm3 (0.16-1.47); MONOCYTES PERCENT AUTO 6 % (4-13); Mean Corpuscular HGB Conc 32.9 g/dL (31.5-36.5); Mean Corpuscular Volume 89 fL (80-100); NEUTROPHILS ABSOLUTE AUTO 8.31 K/mm3 (1.96-9.15); NEUTROPHILS PERCENT AUTO 81 % (41-73); NRBC ABSOLUTE 0.00 K/mm3 (0.00-0.02); NRBC Auto 0.0 /100 WBC (0.0-0.2); Platelet Count 169 K/mm3 (150-400); RDW Coefficient Variation 14.2 % (11.7-14.2); RDW Standard Deviation 46.1 fL (35.1-46.3)
[2025-03-13 12:48] VITALS: BP 117/59
[2025-03-13 15:24] VITALS: BP 102/62
[2025-03-13] MEDS ORDERED: LEVSOD75 PO (15:40)
[2025-03-13] MEDS ORDERED: AMIODARONE HCL400 M2 PO (15:40)
[2025-03-13] MEDS ORDERED: Amiodarone HCl200 MG PO (15:41)
[2025-03-13] MEDS ORDERED: JARDIANCE10 MG PO (15:42)
--- NOTE | 2025-03-13 17:10 | NUR ---
DISCHARGE: PT HAS BEEN A&Ox4, ANSWERING QUESTIONS APPROPRIATELY, COMMUNICATING VIA FAMILY MEMBERS IN ROOM OR MOLECULAR MODELER PHONE. PT HAS BEEN CLEARED FOR DISCHARGE BACK TO [facility] VIA W/C TRANSPORT. ALL IV ACCESS DC'd WNL. PT ASSISTED TO BSC, CLEAN ATTENDS IN PLACE AND PT ASSISTED W/DRESSING. W/C TRANSPORT ARRIVES FOR PT AND PT DEPARTS UNIT IN [facility].
== END 2025-03-13 16:50 | DRG 291 ==
LOC: ER 11:33 → PCU 14:35
PROVIDERS: Emergency Medicine; Family Medicine; Internal Medicine Endocrinology, Diabetes & Metabolism; ADMIT Hospitalist
DX: I13.0 Hypertensive heart and chronic kidney disease with heart failure and stage 1 through stage 4 chronic kidney disease, or unspecified chronic kidney disease (principal); I50.23 Acute on chronic systolic (congestive) heart failure; I69.351 Hemiplegia and hemiparesis following cerebral infarction affecting right dominant side; I44.2 Atrioventricular block, complete; I47.10 Supraventricular tachycardia, unspecified; I48.21 Permanent atrial fibrillation; N18.30 Chronic kidney disease, stage 3 unspecified; E11.22 Type 2 diabetes mellitus with diabetic chronic kidney disease; E78.5 Hyperlipidemia, unspecified; I49.3 Ventricular premature depolarization; I25.10 Atherosclerotic heart disease of native coronary artery without angina pectoris; E03.9 Hypothyroidism, unspecified; K21.9 Gastro-esophageal reflux disease without esophagitis; K59.00 Constipation, unspecified; R11.2 Nausea with vomiting, unspecified; F41.1 Generalized anxiety disorder; I25.2 Old myocardial infarction; Z95.0 Presence of cardiac pacemaker; Z79.82 Long term (current) use of aspirin; Z79.890 Hormone replacement therapy; Z79.84 Long term (current) use of oral hypoglycemic drugs; Z79.02 Long term (current) use of antithrombotics/antiplatelets
CPT/HCPCS: 36415; 71045; 71260; 80053; 80069; 80076; 82947; 83690; 83735; 83880; 84100; 84443; 84484; 85025; 85379; 85520; 85610; 85730; 86140; 93005; 93010; 96365; 96366; 96376; 99285-25; A9270; C8929; J0282; J0780; J1171; J1644; J2405; J7030; J7050; Q9957; Q9967

== ENCOUNTER 2025-03-23 01:11 | Observation (INO) | payer OTHER ==
[~2025-03-23] VITALS: Ht 165.1 cm; Wt 65.3 kg
[~2025-03-23 01:11] MED LIST changes: +ACET325 PO; +ARTIFICIAL TEAR15 M2 BOTHEYES; +DICLOFENAC SOD100 GM TOP; +Isosorbide Mono30 MG PO; +LEVSOD75 PO; +MIRALAX17 GM PO; +SIME80CH PO; +SYSTANE 0.4-0.315 ML BOTHEYES; +[UNRECOGNIZED DRUG - OTHER] BOTHEYES
[2025-03-23 01:33] LABS: BASOPHILS ABSOLUTE AUTO 0.06 K/mm3 (0.00-0.23); BASOPHILS PERCENT AUTO 1 % (0-2); EOSINOPHILS ABSOLUTE AUTO 0.22 K/mm3 (0.00-0.68); EOSINOPHILS PERCENT AUTO 2 % (0-6); Hematocrit 39.4 % (33.0-51.0); Hemoglobin 13.4 g/dL (11.5-16.0); IMMATURE GRAN ABSOLUTE AUTO 0.06 K/mm3 (0.00-0.10); IMMATURE GRAN PERCENT AUTO 1 % (0-1); LYMPHOCYTES ABSOLUTE AUTO 1.95 K/mm3 (0.84-5.20); LYMPHOCYTES PERCENT AUTO 16 % (21-46); MONOCYTES ABSOLUTE AUTO 0.68 K/mm3 (0.16-1.47); MONOCYTES PERCENT AUTO 6 % (4-13); Mean Corpuscular HGB Conc 34.0 g/dL (31.5-36.5); Mean Corpuscular Volume 89 fL (80-100); NEUTROPHILS ABSOLUTE AUTO 8.96 K/mm3 (1.96-9.15); NEUTROPHILS PERCENT AUTO 75 % (41-73); NRBC ABSOLUTE 0.00 K/mm3 (0.00-0.02); NRBC Auto 0.0 /100 WBC (0.0-0.2); Platelet Count 194 K/mm3 (150-400); RDW Coefficient Variation 14.4 % (11.7-14.2); RDW Standard Deviation 46.5 fL (35.1-46.3)
[2025-03-23 01:56] LABS: Alanine Aminotransfer (ALT/SGP 22.0 U/L (12-78); Albumin, Blood 3.4 g/dL (3.4-5.0); Albumin/Globulin Ratio 0.9 (0.8-1.8); Anion Gap 13.0 mmol/L (3-11); Aspartate Aminotrans (AST/SGOT 39.0 U/L (12-37); Bilirubin, Total 1.0 mg/dL (0.1-1.0); Blood Urea Nitrogen 28.0 mg/dL (8-24); CO2, Blood 20.0 mmol/L (21-32); Calcium, Blood 8.7 mg/dL (8.5-10.1); Chloride, Blood 104.0 mmol/L (98-108); Creatinine, Blood 1.04 mg/dL (0.40-1.00); Globulin, Blood 3.7 g/dL (2.2-4.0); Glucose, Blood 158.0 mg/dL (70-99); Potassium, Blood 4.4 mmol/L (3.5-5.5); Sodium, Blood 133.0 mmol/L (136-145); Total Protein, Blood 7.1 g/dL (6.4-8.2)
[2025-03-23 02:31] LABS: Prothrombin Time Results 11.7 Sec (9.7-11.5)
[2025-03-23] MEDS ORDERED: FentaNYL Citrate 50 MCG/ML 2 ML Injection IV PRN ×2 (03:20→05:00)
[2025-03-23 04:50] LABS: Source, Urine Clean Catch
[2025-03-23] MEDS ORDERED: Ondansetron HCl 2 MG / ML 2ML Vial IV PRN ×2 (04:55→18:35)
[2025-03-23] MEDS ORDERED: FLU VACC TS2025(65UP)/MF59C/PF 45 MCG/0.5 ML SYRINGE IM SCH (05:00)
[2025-03-23 05:04] LABS: Bilirubin, Urine Neg (Neg); Glucose Qualitative, Urine 4+ (Neg); Ketones, Urine Neg (Neg); Leukocyte Esterase, Urine 2+ (Neg); Protein, Urine 2+ (Neg); Specific Gravity, Urine 1.015 (1.003-1.022); Urobilinogen, Urine NORM (Normal)
[2025-03-23 05:11] LABS: Color, Urine Pale Yellow (P-Yellow)
[2025-03-23 05:13] LABS: Red Blood Cells, Urine 0-2 /hpf (0-2)
[2025-03-23 05:13] LABS: Anti-Xa UFH, PHA Monitoring <0.10 IU/mL
[2025-03-23] MEDS ORDERED: NS 500 ML IV SCH (05:35)
[2025-03-23] MEDS ORDERED: CefTRIAXone Sodium 1,000 MG in NS 100 ML IV SCH (06:00)
[2025-03-23 06:05] VITALS: BP 128/67
--- NOTE | 2025-03-23 06:05 | NUR ---
ADMISSION NOTE PATIENT ARRIVES FROM ED ON GURNEY TO PCU 3. PATIENT IS AWAKE AND ALERT. ACCOMPANIED BY HER SON. PATIENT C/O NAUSEA ONCE SHE ARRIVED TO ROOM. MEDICATED WITH ZOFRAN 4MG IVP WHILE ON ED GURNEY. PATIENT TRANSFERED TO PCU BED VIA SLIDER SHEET. VITALS STABLE. PATIENT'S RLE NOTED TO BE PALE AND COOL TO THE TOUCH. REPORT FROM ED WAS THAT PULSES ONLY PRESENT VIA DOPPLER AT FEMORAL PULSE. PATIENT GREEK SPEAKING ONLY. MACHINE ASSEMBLER FOR PULLER OVER PHONE IN ROOM AND OFFERED MACHINE ASSEMBLER FOR PULLER OVER SERVICES, PATIENT DECLINED AND PREFERRED TO USE HER SON.
[2025-03-23] MEDS ORDERED: Dose Adjust by Pharmacy XX STA ×2 (06:16→13:55)
[2025-03-23] MEDS ORDERED: Heparin Sodium 5000 Units/ML 1ML MDV IV ONE (06:20)
[2025-03-23] MEDS ORDERED: Heparin Sodium,Porcine/0.5 NS 500 ML IV SCH ×2 (06:20→17:35)
[2025-03-23 07:33] VITALS: BP 130/62
--- NOTE | 2025-03-23 08:01 | NUR ---
ASSUMPTION NOTE: THIS RN TO ASSUME CARE OF PATIENT. PATIENT IS RESTING IN BED,EASILY AROUSABLE. PATIENT IS ALERT AND ORIENTED X4, ENDORESES 9/10 PAIN IN THE RIGHT LEG. PATIENT WAS GIVEN MEDICATIONS PER EMAR. MD ROUNDED AND PATIENT AWARE SHE IS TO GET SURGERY ON THAT LEG SHE HAS AN OCCULUSTION. PATIENT IS Q6 BLOOD SUGAR AND AFTER THE PROCEDURE TO BE AC CHECKS. HAS CALL LIGHT WITHIN REACH, BED IN LOWEST LOCKED POSITION & STATING NOTHING ELSE IS NEEDED AT THIS TIME.
[2025-03-23 12:04] VITALS: BP 129/60
[2025-03-23] MEDS ORDERED: OxyCODONE 5 mg/Acetamin 325 mg TABLET PO PRN (12:30)
--- NOTE | 2025-03-23 12:30 | NUR ---
called. This student nurse called MD, voiced that pt continues to have pain and nausea. MD to place orders. No verbal orders given.
[2025-03-23] MEDS ORDERED: Polyethylene Glycol 3350 17 gm PO PRN (12:45)
[2025-03-23] MEDS ORDERED: Midazolam HCl 1MG / ML 2ML Vial ONE (14:59)
[2025-03-23] MEDS ORDERED: FentaNYL Citrate 50 MCG/ML 2 ML Injection ONE (14:59)
[2025-03-23] MEDS ORDERED: NS 250 ML IV ONE (15:00)
[2025-03-23] MEDS ORDERED: Heparin Sodium 1000 Units/ML 10ML MDV ONE (15:00)
[2025-03-23] MEDS ORDERED: NS 2,000 ML IV ONE (15:00)
[2025-03-23] MEDS ORDERED: Alteplase Recombinant 2 MG / Vial ONE (16:08)
[2025-03-23] MEDS ORDERED: NS IV SCH ×2 (16:25→21:00)
[2025-03-23] MEDS ORDERED: ALTEPLASE IV SCH ×2 (16:25→21:00)
--- NOTE | 2025-03-23 16:40 | NUR ---
TRANSFER NOTE: PATIENT TO BE TRANSFERRED TO ICU. FAMILY WAS NOTIFIED ABOUT TRANSFER. PATIENT IS ALERT AND OREIENTED X4, URDU SPEAKING ONLY. PATIENT WAS GETTING MEDICATED PER EMAR FOR PAIN PRIOR TO TRANSFFERING. PATIENT TECH BROUGHT OVER ALL PERSONAL BELONGINGS.
[2025-03-23] MEDS ORDERED: Dextran/Hypromellose/Glycerin 15 DROP/ML BTL BOTHEYES SCH (17:00)
--- NOTE | 2025-03-23 18:20 | NUR ---
Pt arrived to ICU post laborer cheesemaking procedure via ICU bed. Pt alert and oriented, reported pain level 10 in right lower leg. Pt to remain supine due to L/fem sheath in place. Orders obtained for TPA infusion through sheath at 2 mg/hr x4 hours followed by 1 mg/hr for 20 hours along with heparin infusion at 300 units/hr via side port of sheath. Family brought to bedside shortly after patient arrival. Pt tanzanian speaking but ICU shovel operator phone inoperative, family member able to translate for patient. PRN pain meds administered, see emar. Pt on full liquid diet until midnight, npo for procedure after that. VS stable upon arrival to ICU, pt placed on 02 via NC at 3L/min due to sats declining below 90% when asleep. No acute events post arrival to ICU. Unable to paplate or doppler pulses in right foot.
[2025-03-23] MEDS ORDERED: Midazolam HCl 1MG / ML 2ML Vial IV PRN (18:35)
[2025-03-23 22:00] VITALS: BP 104/66
[2025-03-23 23:00] VITALS: BP 116/68
[2025-03-24] VITALS (24 sets, daily range): BP systolic 80–131; BP diastolic 53–91
[2025-03-24 07:14] LABS: BASOPHILS ABSOLUTE AUTO 0.09 K/mm3 (0.00-0.23); BASOPHILS PERCENT AUTO 1 % (0-2); EOSINOPHILS ABSOLUTE AUTO 0.16 K/mm3 (0.00-0.68); EOSINOPHILS PERCENT AUTO 2 % (0-6); Hematocrit 42.0 % (33.0-51.0); Hemoglobin 13.6 g/dL (11.5-16.0); IMMATURE GRAN ABSOLUTE AUTO 0.07 K/mm3 (0.00-0.10); IMMATURE GRAN PERCENT AUTO 1 % (0-1); LYMPHOCYTES ABSOLUTE AUTO 1.05 K/mm3 (0.84-5.20); LYMPHOCYTES PERCENT AUTO 10 % (21-46); MONOCYTES ABSOLUTE AUTO 1.01 K/mm3 (0.16-1.47); MONOCYTES PERCENT AUTO 9 % (4-13); Mean Corpuscular HGB Conc 32.4 g/dL (31.5-36.5); NEUTROPHILS ABSOLUTE AUTO 8.48 K/mm3 (1.96-9.15); NEUTROPHILS PERCENT AUTO 78 % (41-73); NRBC ABSOLUTE 0.00 K/mm3 (0.00-0.02); NRBC Auto 0.0 /100 WBC (0.0-0.2); Platelet Count 166 K/mm3 (150-400); RDW Coefficient Variation 14.6 % (11.7-14.2); RDW Standard Deviation 50.2 fL (35.1-46.3)
[2025-03-24 07:17] LABS: Mean Corpuscular Volume 94 fL (80-100)
[2025-03-24 07:35] LABS: Alanine Aminotransfer (ALT/SGP 23.0 U/L (12-78); Albumin, Blood 3.1 g/dL (3.4-5.0); Albumin/Globulin Ratio 0.9 (0.8-1.8); Anion Gap 10.0 mmol/L (3-11); Aspartate Aminotrans (AST/SGOT 43.0 U/L (12-37); Bilirubin, Total 0.6 mg/dL (0.1-1.0); Blood Urea Nitrogen 26.0 mg/dL (8-24); CO2, Blood 26.0 mmol/L (21-32); Calcium, Blood 8.6 mg/dL (8.5-10.1); Chloride, Blood 106.0 mmol/L (98-108); Creatinine, Blood 1.07 mg/dL (0.40-1.00); Globulin, Blood 3.4 g/dL (2.2-4.0); Glucose, Blood 99.0 mg/dL (70-99); Potassium, Blood 4.8 mmol/L (3.5-5.5); Sodium, Blood 137.0 mmol/L (136-145); Total Protein, Blood 6.5 g/dL (6.4-8.2)
[2025-03-24] MEDS ORDERED: MetFORMIN HCl 500 mg PO SCH (09:00)
[2025-03-24] MEDS ORDERED: NS 1,000 ML IV ONE ×2 (12:10→12:16)
[2025-03-24] MEDS ORDERED: Heparin Sodium 1000 Units/ML 10ML MDV ONE (12:10)
[2025-03-24] MEDS ORDERED: NS 250 ML IV ONE (12:10)
[2025-03-24] MEDS ORDERED: Nitroglycerin 2 MG/20 ML BTL ONE (12:10)
--- NOTE | 2025-03-24 12:26 | NUR ---
UPDATE: PT LEFT FOR STORE RECEIVING CLERK AT 1225. PT IS ALERT AND ORIENTED X 4, ABLE TO COMMUNICATE NEEDS. PT ON RA WITH SPO2 ABOVE 92% NO RESP DISTRESS NOTED. PT IN PACED RYTHYM WITH HR 64, BP STABLE. LEFT FEMORAL SHEATH IN PLACE, HEPARIN AND TPA INFUSING. FAMILY AT BEDSIDE UPDATED.
[2025-03-24] MEDS ORDERED: Heparin Sodium,Porcine/0.5 NS 500 ML IV SCH (13:45)
--- NOTE | 2025-03-24 18:57 | NUR ---
SHIFT SUMMARY: PT BACK FROM DENIER CONTROL OPERATOR AT 1330. LEFT FEM SITE DRESSING C/D/I, NO OOZING NOTED. PT IS ALERT AND ORIENTED X 4, ABLE TO FOLLOW COMMANDS AND COMMUNICATE NEEDS. PT C/O PAIN TO L FEM SITE, PRN FENTANYL GIVEN PER MAR WITH GOOD EFFECT. PT IN SUPINE POSITION FOR 1 HR POST PROCEDURE. RLE PINK AND WARM TO THE TOUCH, CAP REFILL NOW LESS THAN 3 SECOUNDS. PT UNABLE TO MOVE RLE, FAMILY STATES THIS IS "NORMAL" D/T HX CVA. PT IN PACED RHYTHM, HR 60'S, BP STABLE. PT DENIES ANY CHEST PAIN. PT REMAINS ON RA, SPO2 ABOVE 92% NO RESP DISTRESS NOTED. PT TOLERATING PO INTAKE. PUREWICK IN PLACE TO SUCTION, 500 ML OUTPUT FOR SHIFT. NO BM. PLAN OF CARE ONGOING.
[2025-03-25] VITALS: BP 117/51
[2025-03-25 04:00] VITALS: BP 117/74
[2025-03-25 04:10] LABS: BASOPHILS ABSOLUTE AUTO 0.05 K/mm3 (0.00-0.23); BASOPHILS PERCENT AUTO 1 % (0-2); EOSINOPHILS ABSOLUTE AUTO 0.22 K/mm3 (0.00-0.68); EOSINOPHILS PERCENT AUTO 2 % (0-6); Hematocrit 40.1 % (33.0-51.0); Hemoglobin 13.3 g/dL (11.5-16.0); IMMATURE GRAN ABSOLUTE AUTO 0.06 K/mm3 (0.00-0.10); IMMATURE GRAN PERCENT AUTO 1 % (0-1); LYMPHOCYTES ABSOLUTE AUTO 1.38 K/mm3 (0.84-5.20); LYMPHOCYTES PERCENT AUTO 15 % (21-46); MONOCYTES ABSOLUTE AUTO 0.88 K/mm3 (0.16-1.47); MONOCYTES PERCENT AUTO 9 % (4-13); Mean Corpuscular HGB Conc 33.2 g/dL (31.5-36.5); Mean Corpuscular Volume 90 fL (80-100); NEUTROPHILS ABSOLUTE AUTO 6.75 K/mm3 (1.96-9.15); NEUTROPHILS PERCENT AUTO 72 % (41-73); NRBC ABSOLUTE 0.00 K/mm3 (0.00-0.02); NRBC Auto 0.0 /100 WBC (0.0-0.2); Platelet Count 187 K/mm3 (150-400); RDW Coefficient Variation 14.5 % (11.7-14.2); RDW Standard Deviation 47.4 fL (35.1-46.3)
--- NOTE | 2025-03-25 06:12 | NUR ---
TRANSFER NOTE PATIENT TRANSFERRED TO ROOM 358 FROM ICU THIS AM AT 0600. PATIENT A/OX4, ABLE TO MAKE NEEDS KNOWN. [place] SPEAKING, WITH MINIMAL NEW ZEALANDER, TRANSLATER PHONE AT BEDSIDE. PUREWICK IN PLACE. SKIN ASSESSMENT COMPLETED, INCISION TO L GROIN C/D/I WITH TEGADERM IN PLACE. PATIENT WITH RIGHT LOWER EXTREMITY DEFECIT. TELEMETRY IN PLACE, PACED RHYTHYM IN 60s. DENIES PAIN AT THIS TIME. VSS. PLAN TO DISCHARGE TO [facility] TODAY.
[2025-03-25 06:14] VITALS: BP 107/60
[2025-03-25 08:04] VITALS: BP 109/60
--- NOTE | 2025-03-25 09:00 | NUR ---
pt laying in bed recieving a bed bath, and linen change, a/ox4, pleasant and cooperative with care, follows commands well, language barrier, lungs are clear t/o, resp even and unlabored, on r/a, hrr, tele in place running paced rhythm at 60bpm, no edema noted, ppp+2, cap refill<3 sec, vs stable, afebrile, piv to lax2, sites are clear and patent, btx4, abd flat soft nontender, voids via purwick at this time, skin has access to left inguinal area, site is soft with a bit of bruising, no drainage noted, nathan starr, call light in reach.
[2025-03-25 12:06] VITALS: BP 118/60
--- NOTE | 2025-03-25 17:02 | NUR ---
pt has been tx back to [facility], she left with all belongings via wheelchair, piv x2 removed intact, dressed, report given to nurse Dylon, career coach left ms with family.
--- NOTE | 2025-03-25 18:50 | NUR ---
PALLIATIVE CARE NOTE: ATTEMPTED TO SEE PT. SHE HAD JUST LEFT TO REHAB.
== END 2025-03-25 17:02 ==
LOC: ER 01:11 → ICUE 01:12 → PCU 01:12 → ICUE 17:04 → MEDS 03-25 05:55
PROVIDERS: Emergency Medicine; Radiology Diagnostic Radiology; ADMIT Internal Medicine
DX: E11.51 Type 2 diabetes mellitus with diabetic peripheral angiopathy without gangrene (principal); I70.221 Atherosclerosis of native arteries of extremities with rest pain, right leg; I48.91 Unspecified atrial fibrillation; I13.0 Hypertensive heart and chronic kidney disease with heart failure and stage 1 through stage 4 chronic kidney disease, or unspecified chronic kidney disease; I50.22 Chronic systolic (congestive) heart failure; E11.22 Type 2 diabetes mellitus with diabetic chronic kidney disease; N18.30 Chronic kidney disease, stage 3 unspecified; F41.1 Generalized anxiety disorder; N39.0 Urinary tract infection, site not specified; E78.5 Hyperlipidemia, unspecified; Z95.0 Presence of cardiac pacemaker; Z79.899 Other long term (current) drug therapy; Z79.82 Long term (current) use of aspirin; Z79.890 Hormone replacement therapy
CPT/HCPCS: 36247; 36415; 37211; 37213; 70450; 71045; 75625; 75635; 75716; 75774; 75898; 76937; 80053; 81001; 82550; 82947; 83605; 83690; 83880; 84484; 85018; 85025; 85384; 85520; 85610; 85730; 87077; 87086; 87186; 93005; 93010; 94760; 96374-59; 96375; 96376; 99285-25; A6590; A9270; C1757; C1760; C1769; C1887; C1894; C8929; G0378; J0696; J1644; J2250; J2405; J2997; J3010; J7030; J7040; J7050; Q9957; Q9967

== ENCOUNTER 2025-04-20 11:20 | Emergency (ER) | payer OTHER ==
[~2025-04-20] VITALS: Ht 160 cm; Wt 59.0 kg
[2025-04-20 12:12] LABS: BASOPHILS ABSOLUTE AUTO 0.07 K/mm3 (0.00-0.23); BASOPHILS PERCENT AUTO 1 % (0-2); EOSINOPHILS ABSOLUTE AUTO 0.19 K/mm3 (0.00-0.68); EOSINOPHILS PERCENT AUTO 3 % (0-6); Hematocrit 41.4 % (33.0-51.0); Hemoglobin 13.3 g/dL (11.5-16.0); IMMATURE GRAN ABSOLUTE AUTO 0.03 K/mm3 (0.00-0.10); IMMATURE GRAN PERCENT AUTO 0 % (0-1); LYMPHOCYTES ABSOLUTE AUTO 1.62 K/mm3 (0.84-5.20); LYMPHOCYTES PERCENT AUTO 22 % (21-46); MONOCYTES ABSOLUTE AUTO 0.74 K/mm3 (0.16-1.47); MONOCYTES PERCENT AUTO 10 % (4-13); Mean Corpuscular HGB Conc 32.1 g/dL (31.5-36.5); Mean Corpuscular Volume 93 fL (80-100); NEUTROPHILS ABSOLUTE AUTO 4.85 K/mm3 (1.96-9.15); NEUTROPHILS PERCENT AUTO 65 % (41-73); NRBC ABSOLUTE 0.00 K/mm3 (0.00-0.02); NRBC Auto 0.0 /100 WBC (0.0-0.2); Platelet Count 161 K/mm3 (150-400); RDW Coefficient Variation 15.5 % (11.7-14.2); RDW Standard Deviation 52.6 fL (35.1-46.3)
[2025-04-20 12:35] LABS: Alanine Aminotransfer (ALT/SGP 29.0 U/L (12-78); Albumin, Blood 3.6 g/dL (3.4-5.0); Albumin/Globulin Ratio 1.1 (0.8-1.8); Anion Gap 10.0 mmol/L (3-11); Aspartate Aminotrans (AST/SGOT 30.0 U/L (12-37); Bilirubin, Total 0.7 mg/dL (0.1-1.0); Blood Urea Nitrogen 34.0 mg/dL (8-24); CO2, Blood 27.0 mmol/L (21-32); Calcium, Blood 8.8 mg/dL (8.5-10.1); Chloride, Blood 104.0 mmol/L (98-108); Creatinine, Blood 1.27 mg/dL (0.40-1.00); Globulin, Blood 3.2 g/dL (2.2-4.0); Glucose, Blood 101.0 mg/dL (70-99); Potassium, Blood 4.6 mmol/L (3.5-5.5); Sodium, Blood 136.0 mmol/L (136-145); Total Protein, Blood 6.8 g/dL (6.4-8.2)
[2025-04-20] MEDS ORDERED: Ondansetron HCl 2 MG / ML 2ML Vial IV ONE (12:35)
[2025-04-20 13:07] LABS: Source, Urine Voided
[2025-04-20 13:11] LABS: Color, Urine Yellow (P-Yellow); Glucose Qualitative, Urine 4+ (Neg); Ketones, Urine Neg (Neg); Leukocyte Esterase, Urine Neg (Neg); Protein, Urine 2+ (Neg); Specific Gravity, Urine 1.010 (1.003-1.022); Urobilinogen, Urine 1+ (Normal)
[2025-04-20 13:29] LABS: Bilirubin, Urine 1+ (Neg)
[2025-04-20] MEDS ORDERED: ATOR40TA PO (15:20)
[2025-04-20] MEDS ORDERED: STEGLATRO5 MG PO (15:22)
[2025-04-20 16:30] VITALS: BP 115/61
[2025-04-20] MEDS ORDERED: ONDA4ODT MM (16:41)
== END 2025-04-20 17:25 | disposition home or self-care (01) ==
LOC: ER 11:20
PROVIDERS: Emergency Medicine
DX: R55 Syncope and collapse (principal); E78.5 Hyperlipidemia, unspecified; E11.9 Type 2 diabetes mellitus without complications; I11.0 Hypertensive heart disease with heart failure; I50.20 Unspecified systolic (congestive) heart failure; Z87.442 Personal history of urinary calculi; Z79.82 Long term (current) use of aspirin; Z79.899 Other long term (current) drug therapy
CPT/HCPCS: 70450; 71046; 80053; 81001; 83690; 83880; 84443; 84484; 85025; 93005; 93010; 96374; 99285-25; A6590; J2405

== ENCOUNTER 2025-05-03 11:31 | Observation (INO) | payer OTHER ==
[~2025-05-03] VITALS: Ht 167.6 cm; Wt 66.3 kg
[~2025-05-03 11:31] MED LIST changes: +ATOR40TA PO; +STEGLATRO5 MG PO
[2025-05-03 12:02] LABS: BASOPHILS ABSOLUTE AUTO 0.04 K/mm3 (0.00-0.23); BASOPHILS PERCENT AUTO 1 % (0-2); EOSINOPHILS ABSOLUTE AUTO 0.11 K/mm3 (0.00-0.68); EOSINOPHILS PERCENT AUTO 1 % (0-6); Hematocrit 39.2 % (33.0-51.0); Hemoglobin 12.8 g/dL (11.5-16.0); IMMATURE GRAN ABSOLUTE AUTO 0.05 K/mm3 (0.00-0.10); IMMATURE GRAN PERCENT AUTO 1 % (0-1); LYMPHOCYTES ABSOLUTE AUTO 1.18 K/mm3 (0.84-5.20); LYMPHOCYTES PERCENT AUTO 14 % (21-46); MONOCYTES ABSOLUTE AUTO 0.47 K/mm3 (0.16-1.47); MONOCYTES PERCENT AUTO 6 % (4-13); Mean Corpuscular HGB Conc 32.7 g/dL (31.5-36.5); Mean Corpuscular Volume 94 fL (80-100); NEUTROPHILS ABSOLUTE AUTO 6.62 K/mm3 (1.96-9.15); NEUTROPHILS PERCENT AUTO 78 % (41-73); NRBC ABSOLUTE 0.00 K/mm3 (0.00-0.02); NRBC Auto 0.0 /100 WBC (0.0-0.2); Platelet Count 158 K/mm3 (150-400); RDW Coefficient Variation 15.9 % (11.7-14.2); RDW Standard Deviation 55.0 fL (35.1-46.3)
[2025-05-03 12:06] LABS: Source, Urine Clean Catch
[2025-05-03 12:12] LABS: Bilirubin, Urine Neg (Neg); Color, Urine Yellow (P-Yellow); Glucose Qualitative, Urine 4+ (Neg); Ketones, Urine Neg (Neg); Leukocyte Esterase, Urine 3+ (Neg); Protein, Urine 2+ (Neg); Specific Gravity, Urine 1.015 (1.003-1.022); Urobilinogen, Urine NORM (Normal)
[2025-05-03 12:19] LABS: Alanine Aminotransfer (ALT/SGP 28.0 U/L (12-78); Albumin, Blood 3.6 g/dL (3.4-5.0); Albumin/Globulin Ratio 1.1 (0.8-1.8); Anion Gap 9.0 mmol/L (3-11); Aspartate Aminotrans (AST/SGOT 24.0 U/L (12-37); Bilirubin, Total 0.5 mg/dL (0.1-1.0); Blood Urea Nitrogen 41.0 mg/dL (8-24); CO2, Blood 25.0 mmol/L (21-32); Calcium, Blood 8.9 mg/dL (8.5-10.1); Chloride, Blood 107.0 mmol/L (98-108); Creatinine, Blood 1.6 mg/dL (0.40-1.00); Globulin, Blood 3.2 g/dL (2.2-4.0); Glucose, Blood 200.0 mg/dL (70-99); Potassium, Blood 4.5 mmol/L (3.5-5.5); Sodium, Blood 136.0 mmol/L (136-145); Total Protein, Blood 6.8 g/dL (6.4-8.2)
[2025-05-03 12:34] LABS: White Blood Cells, Urine TNTC /hpf (0-5)
[2025-05-03] MEDS ORDERED: NS 1,000 ML IV SCH (12:50)
[2025-05-03] MEDS ORDERED: CefTRIAXone Sodium 1,000 MG in NS 100 ML IV ONE (13:45)
[2025-05-03] MEDS ORDERED: Polyethylene Glycol 3350 17 gm PO PRN (14:55)
[2025-05-03] MEDS ORDERED: Ondansetron 4 MG SoluTab MM PRN (14:55)
[2025-05-03] MEDS ORDERED: FLU VACC TS2025(65UP)/MF59C/PF 45 MCG/0.5 ML SYRINGE IM SCH (16:45)
[2025-05-03 19:39] VITALS: BP 94/56
[2025-05-03] MEDS ORDERED: Dextran/Hypromellose/Glycerin 15 DROP/ML BTL BOTHEYES SCH (21:00)
--- NOTE | 2025-05-03 21:10 | NUR ---
PT'S BLOOD PRESSURE 94/56, HR 65. PT SCHEDULED TO RECEIVE METOPROLOL 25MG AT 2100. NOTIFIED HOSPITALIST, VIGNESH, GIVEN TELEPHONE ORDER TO HOLD METOPROLOL.
[2025-05-03 23:15] VITALS: BP 122/74
--- NOTE | 2025-05-04 01:19 | NUR ---
SHIFT SUMMARY PT IS A&OX4. GUATEMALAN SPEAKING, USES VIDEO RESEARCH AND DEVELOPMENT TECHNICIAN, ABLE TO MAKE NEEDS KNOWN. PT ANXIOUS ABOUT DECREASED MOBILITY, S/P PRIOR STROKE. DESIRES TO WORK WITH PT. RESIDES AT [facility]. WHEELCHAIR BOUND AT BASELINE. TELE/BIVENTRICULAR PACED. ROOM AIR. 1 EPISODE OF SOFT BP/2100 METOPROLOL HELD PER MD. INTERMITTENT INCONTINENCE.
[2025-05-04 03:34] VITALS: BP 103/49
[2025-05-04 07:37] VITALS: BP 118/55
[2025-05-04] MEDS ORDERED: NS 250 ML IV PRN (08:20)
[2025-05-04 08:35] LABS: BASOPHILS ABSOLUTE AUTO 0.05 K/mm3 (0.00-0.23); BASOPHILS PERCENT AUTO 1 % (0-2); EOSINOPHILS ABSOLUTE AUTO 0.17 K/mm3 (0.00-0.68); EOSINOPHILS PERCENT AUTO 3 % (0-6); Hematocrit 39.0 % (33.0-51.0); Hemoglobin 12.7 g/dL (11.5-16.0); IMMATURE GRAN ABSOLUTE AUTO 0.04 K/mm3 (0.00-0.10); IMMATURE GRAN PERCENT AUTO 1 % (0-1); LYMPHOCYTES ABSOLUTE AUTO 1.43 K/mm3 (0.84-5.20); LYMPHOCYTES PERCENT AUTO 21 % (21-46); MONOCYTES ABSOLUTE AUTO 0.50 K/mm3 (0.16-1.47); MONOCYTES PERCENT AUTO 8 % (4-13); Mean Corpuscular HGB Conc 32.6 g/dL (31.5-36.5); Mean Corpuscular Volume 92 fL (80-100); NEUTROPHILS ABSOLUTE AUTO 4.48 K/mm3 (1.96-9.15); NEUTROPHILS PERCENT AUTO 67 % (41-73); NRBC ABSOLUTE 0.00 K/mm3 (0.00-0.02); NRBC Auto 0.0 /100 WBC (0.0-0.2); Platelet Count 121 K/mm3 (150-400); RDW Coefficient Variation 15.9 % (11.7-14.2); RDW Standard Deviation 53.7 fL (35.1-46.3)
[2025-05-04 08:50] VITALS: BP 111/55
[2025-05-04] MEDS ORDERED: CefTRIAXone Sodium 1,000 MG in NS 100 ML IV SCH (09:00)
[2025-05-04] MEDS ORDERED: MetFORMIN HCl 500 mg PO SCH (09:00)
[2025-05-04 09:42] LABS: Anion Gap 10.0 mmol/L (3-11); Blood Urea Nitrogen 27.0 mg/dL (8-24); CO2, Blood 22.0 mmol/L (21-32); Calcium, Blood 8.8 mg/dL (8.5-10.1); Chloride, Blood 110.0 mmol/L (98-108); Creatinine, Blood 1.2 mg/dL (0.40-1.00); Glucose, Blood 88.0 mg/dL (70-99); Potassium, Blood 5.0 mmol/L (3.5-5.5); Sodium, Blood 137.0 mmol/L (136-145); Thyroid Stimulating Hormone 3.1 uIU/mL (0.360-4.800)
[2025-05-04 11:47] VITALS: BP 92/53
[2025-05-04 15:27] VITALS: BP 116/63
--- NOTE | 2025-05-04 17:59 | NUR ---
SUMMARY PT A/OX4. CLINICAL TRIAL SPECIALIST USED VIA IPHAD AT BEDSIDE FOR CARE. PT WAS HYPOTESIVE THIS AFTERNOON SYSTOLIC IN THE LOW 90'S DR. AMARAL MADE AWARE DC'D LISINOPRIL. PT BASELINE RIGHT SIDE WEAKNESS LIMITED ROM TO R ARM, FLACCID R LEG. PT COOPERATIVE WITH SCD'S. IV ANTIBX INFUSED ORDERED. OTHROSTATIC VITALS WERE ORDERED BUT COULD NOT ACCURATELY COMPLETE. PT HAS FLACCID R LEG, UNALBE TO STAND. LYING AND SITTING VITALS COMPLETED AND DOCUMENTED. SCD'S IN BED. PT INCONTINENT CHAGNED BRIEFS PRN.
[2025-05-04 20:01] VITALS: BP 96/55
--- NOTE | 2025-05-04 20:57 | NUR ---
HELD Metoprolol Succinate Discussed with Joce STENOGRAPHER [employer] RE soft bp this evening and whether or not to hold 25mg metoprolol succinate. Decision was made by Joce to hold. Did inquire on ordering hold parameters. None ordered at this time. Will report off to receiving RN in the AM to discuss with Attending.
--- NOTE | 2025-05-05 02:35 | NUR ---
PT C/O UPPER EPIGASTRIC PAIN, ONGOING FOR A FEW MONTHS. INTERMITTENTLY WORSENS AFTER ORAL INTAKE. CURRENTLY PAIN IS WORSE THAN IT TYPICALLY IS. INITIALLY CONTRIBUTED DISCOMFORT TO GAS, RECEIVED ORAL SIMETHICONE WITHOUT RELIEF. CALL OUT TO DR. BAIG. NEW ORDER FOR FENTANYL 25-50 MCG IV Q4 PRN PLACED.
[2025-05-05] MEDS ORDERED: Mag Hydrox/Al Hydrox/Simeth 72 ML,Lidocaine 2% Viscous Soln 36 ML,Atropine/Scopalam/Hyo... PO PRN (02:55)
[2025-05-05] MEDS ORDERED: FentaNYL Citrate 50 MCG/ML 2 ML Injection IV PRN (03:00)
--- NOTE | 2025-05-05 04:29 | NUR ---
SHIFT SUMMARY PT A&OX4. GIBRALTARIAN SPEAKING, USING AN DISTRIBUTION CENTER SUPERVISOR VIA IPAD AT BEDSIDE. PT WAS HYPOTENSIVE AT BEGINNING OF SHIFT, MADE AWARE, RECEIVED TELEPHONE ORDER TO HOLD 2100 DOSE OF METOPROLOL. PT ON TELE, BIVENTRICULAR PACED. PUREWICK IN PLACE. LFA PIV PATENT/SALINE LOCKED. MID SHIFT PT COMPLAINING OF UPPER EPIGASTRIC PAIN, STATES IT TYPICALLY HAPPENS AFTER SHE EATS. MEDICATED WITH SIMETHICONE PER AUG WHICH WAS INEFFECTIVE. PT REPORTING PAIN PERSISTENT AND WORSENING. REACHED OUT TO MD, OBTAINED TELEPHONE ORDERS FOR GI COCKTAIL, TUMS, AND PRN FENTANYL. MEDICATED PT WITH GI COCKTAIL PER AUG WHICH GAVE PT SIGNIFICANT RELIEF. RESTING COMFORTABLY IN BED CURRENTLY. PT FULLY INCONTINENT. VSS. WILL PASS REPORT TO DAY RN.
[2025-05-05 07:20] VITALS: BP 122/73
--- NOTE | 2025-05-05 07:26 | NUR ---
SEVERE MID-EPIGASTRIC PAIN Cecelia, tele monitor, reported sudden increased heart rate averaging 60's to 99 which has not occurred since pt has been here. Patient found awake in bed c/o wet brief. Upon assessing, patient also c/o persistent mid-epigastric pain w/ radiation to R leg and shortness of breath. Had a similar episode without radiating pain/sob early in the shift that was shortly resolved w/ GI cocktail. Notified Dr. Mitchell. T.O. for EKG x 1, hard copy in chart.
[2025-05-05 07:53] LABS: BASOPHILS ABSOLUTE AUTO 0.04 K/mm3 (0.00-0.23); BASOPHILS PERCENT AUTO 1 % (0-2); EOSINOPHILS ABSOLUTE AUTO 0.17 K/mm3 (0.00-0.68); EOSINOPHILS PERCENT AUTO 3 % (0-6); Hematocrit 41.5 % (33.0-51.0); Hemoglobin 13.6 g/dL (11.5-16.0); IMMATURE GRAN ABSOLUTE AUTO 0.03 K/mm3 (0.00-0.10); IMMATURE GRAN PERCENT AUTO 0 % (0-1); LYMPHOCYTES ABSOLUTE AUTO 1.76 K/mm3 (0.84-5.20); LYMPHOCYTES PERCENT AUTO 26 % (21-46); MONOCYTES ABSOLUTE AUTO 0.56 K/mm3 (0.16-1.47); MONOCYTES PERCENT AUTO 8 % (4-13); Mean Corpuscular HGB Conc 32.8 g/dL (31.5-36.5); Mean Corpuscular Volume 91 fL (80-100); NEUTROPHILS ABSOLUTE AUTO 4.12 K/mm3 (1.96-9.15); NEUTROPHILS PERCENT AUTO 62 % (41-73); NRBC ABSOLUTE 0.00 K/mm3 (0.00-0.02); NRBC Auto 0.0 /100 WBC (0.0-0.2); Platelet Count 158 K/mm3 (150-400); RDW Coefficient Variation 15.8 % (11.7-14.2); RDW Standard Deviation 52.3 fL (35.1-46.3)
[2025-05-05 08:17] LABS: Alanine Aminotransfer (ALT/SGP 24.0 U/L (12-78); Albumin, Blood 3.3 g/dL (3.4-5.0); Albumin/Globulin Ratio 0.9 (0.8-1.8); Anion Gap 12.0 mmol/L (3-11); Aspartate Aminotrans (AST/SGOT 24.0 U/L (12-37); Bilirubin, Total 0.7 mg/dL (0.1-1.0); Blood Urea Nitrogen 30.0 mg/dL (8-24); CO2, Blood 23.0 mmol/L (21-32); Calcium, Blood 9.1 mg/dL (8.5-10.1); Chloride, Blood 106.0 mmol/L (98-108); Creatinine, Blood 1.25 mg/dL (0.40-1.00); Globulin, Blood 3.6 g/dL (2.2-4.0); Glucose, Blood 103.0 mg/dL (70-99); Potassium, Blood 4.7 mmol/L (3.5-5.5); Sodium, Blood 136.0 mmol/L (136-145); Total Protein, Blood 6.9 g/dL (6.4-8.2)
[2025-05-05 11:26] VITALS: BP 100/62
[2025-05-05 16:26] VITALS: BP 102/56
--- NOTE | 2025-05-05 18:19 | NUR ---
END OF SHIFT PATIENT RESTING IN BED. A&O4, ABLE TO MAKE NEEDS KNOWN. BOWEL CARE TODAY, WITH RESULTS. TABLET HOTEL FRONT DESK CLERK AT BEDSIDE AND USED WITH CARE. FAMILY IN TODAY, UPDATED FAMILY ABOUT CARE AND ANSWERED QUESTIONS. ABD XRAY ORDERED FROM DR MENDIETA, AND MORE BOWEL CARE IF NEEDED. PATIENT DECLINED PAIN TODAY, STATES SHE BELIEVES ITS BECAUSE SHE WAS EATING SO LATE AND SHE NORMALLY DOES NOT EAT PAST 3PM. DECLINED DINNER TODAY, REMINDED HER TO ASK IF SHE GETS HUNGRY LATER. BED BATH DONE. NO OTHER CONCERNS FOR THIS SHIFT.
[2025-05-05 19:14] VITALS: BP 115/66
[2025-05-05] MEDS ORDERED: Polyethylene Glycol 3350 17 gm PO SCH ×2 (21:00)
[2025-05-05 23:06] VITALS: BP 115/67
[2025-05-06 02:25] VITALS: BP 109/64
--- NOTE | 2025-05-06 03:41 | NUR ---
PT HAD RESTFUL EVENING. 1X ATTENDS CHANGE, NO BM THIS SHIFT. NO TELEMETRY EVENTS AND NO COMPLAINTS OF CHEST PAIN OR EPIGASTRIC PAIN. USING TELE PROCUREMENT COST COORDINATOR FOR COMMUNICATION.
[2025-05-06 07:17] VITALS: BP 104/66
[2025-05-06 08:09] LABS: BASOPHILS ABSOLUTE AUTO 0.04 K/mm3 (0.00-0.23); BASOPHILS PERCENT AUTO 1 % (0-2); EOSINOPHILS ABSOLUTE AUTO 0.14 K/mm3 (0.00-0.68); EOSINOPHILS PERCENT AUTO 2 % (0-6); Hematocrit 42.2 % (33.0-51.0); Hemoglobin 14.1 g/dL (11.5-16.0); IMMATURE GRAN ABSOLUTE AUTO 0.03 K/mm3 (0.00-0.10); IMMATURE GRAN PERCENT AUTO 0 % (0-1); LYMPHOCYTES ABSOLUTE AUTO 1.57 K/mm3 (0.84-5.20); LYMPHOCYTES PERCENT AUTO 20 % (21-46); MONOCYTES ABSOLUTE AUTO 0.59 K/mm3 (0.16-1.47); MONOCYTES PERCENT AUTO 7 % (4-13); Mean Corpuscular HGB Conc 33.4 g/dL (31.5-36.5); Mean Corpuscular Volume 91 fL (80-100); NEUTROPHILS ABSOLUTE AUTO 5.67 K/mm3 (1.96-9.15); NEUTROPHILS PERCENT AUTO 71 % (41-73); NRBC ABSOLUTE 0.00 K/mm3 (0.00-0.02); NRBC Auto 0.0 /100 WBC (0.0-0.2); Platelet Count 152 K/mm3 (150-400); RDW Coefficient Variation 15.8 % (11.7-14.2); RDW Standard Deviation 51.7 fL (35.1-46.3)
[2025-05-06] MEDS ORDERED: Cefadroxil500 MG PO (08:21)
[2025-05-06 08:35] LABS: Alanine Aminotransfer (ALT/SGP 26.0 U/L (12-78); Albumin, Blood 3.4 g/dL (3.4-5.0); Albumin/Globulin Ratio 0.9 (0.8-1.8); Anion Gap 9.0 mmol/L (3-11); Aspartate Aminotrans (AST/SGOT 26.0 U/L (12-37); Bilirubin, Total 0.7 mg/dL (0.1-1.0); Blood Urea Nitrogen 28.0 mg/dL (8-24); CO2, Blood 25.0 mmol/L (21-32); Calcium, Blood 9.4 mg/dL (8.5-10.1); Chloride, Blood 105.0 mmol/L (98-108); Creatinine, Blood 1.21 mg/dL (0.40-1.00); Globulin, Blood 3.6 g/dL (2.2-4.0); Glucose, Blood 99.0 mg/dL (70-99); Potassium, Blood 4.6 mmol/L (3.5-5.5); Sodium, Blood 134.0 mmol/L (136-145); Total Protein, Blood 7.0 g/dL (6.4-8.2)
[2025-05-06 10:10] VITALS: BP 126/66
--- NOTE | 2025-05-06 11:23 | NUR ---
NURSE NOTE; WHEN ADMINISTERING AM MEDICATION, FULL DOSE OF SPIRONOLACTONE ACCIDENTALLY GIVEN TO PT, WHEN HALF DOSE WAS THE ORDERED DOSE. NOTIFIED AND DECISION TO HOLD METOPROLOL WAS MADE. BLOOD PRESSURE WAS REASSESSED APPROX 45 MINS AFTER ADMINISTRATION. SEE VITALS AT 1010 TIME.
[2025-05-06 11:56] VITALS: BP 118/76
--- NOTE | 2025-05-06 12:27 | NUR ---
NURSE NOTE; PT NOTIFIED OF RIDE TIME TO [facility] AT 1300. IV/ TELE REMOVED FROM PATIENT. PT PREFERRING TO STAY IN GOWN. PT'S FAMILY- GRAND DAUGHTER, NOTIFIED OF PT DISCHARGING TO [facility] FOR SCHEDULED RIDE TIME AT 1300 VIA PHONE W/ WIRELESS SALES CONSULTANT ON STANDBY.
--- NOTE | 2025-05-06 13:12 | NUR ---
DISCHARGE NOTE; [facility] CALLED AND GIVEN REPORT. CALL PLACED AT 1230 AND REPORT GIVEN TO JASSI. [facility] ARRIVED TO FLOOR AT 1245 AND TRANSPORTED PT VIA WHEELCHAIR IN STABLE CONDITION.
== END 2025-05-06 12:50 ==
LOC: ER 11:31 → MEDS 11:32 → ENPENDDIS 05-06 08:35 → MEDS 05-06 12:50
PROVIDERS: Emergency Medicine; ADMIT Internal Medicine
DX: I95.9 Hypotension, unspecified (principal); N39.0 Urinary tract infection, site not specified; E78.5 Hyperlipidemia, unspecified; I48.0 Paroxysmal atrial fibrillation; N18.30 Chronic kidney disease, stage 3 unspecified; E11.22 Type 2 diabetes mellitus with diabetic chronic kidney disease; I13.0 Hypertensive heart and chronic kidney disease with heart failure and stage 1 through stage 4 chronic kidney disease, or unspecified chronic kidney disease; I50.22 Chronic systolic (congestive) heart failure; Z79.01 Long term (current) use of anticoagulants; Z79.84 Long term (current) use of oral hypoglycemic drugs; Z79.899 Other long term (current) drug therapy
CPT/HCPCS: 36415; 74018; 80048; 80053; 81001; 83690; 84443; 84484; 85025; 87077; 87086; 87186; 93005; 93010; 96361; 96365; 96366; 96376; 99285-25; A9270; G0378; J0696; J7030; J7050